=== PATIENT | female | born 1945 | race Caucasian/White ===

== ENCOUNTER 2019-01-28 10:43 | Inpatient (IN) ==
[2019-01-28] MEDS ORDERED: FUROSEMIDE 100 MG/10 ML VIAL IV STA (13:05)
[2019-01-28 13:22] LABS: Basophils % 0.2 % (0.0-0.8); Eosinophils # 0.1 10*3/uL (0.0-0.87); Eosinophils % 1.5 % (0.00-10.9); Hemoglobin 13.6 GM/DL (12.0-16.0); Immature Granulocytes % 0.4 %; Immature Granulocytes Absolute 0.02 #; Lymphocytes # 0.8 10*3/uL (1.4-4.0); Lymphocytes % 16.1 % (21.3-54.2); Mean Corpuscular HGB Conc 30.2 GM/DL (32-36); Mean Corpuscular Volume 90.2 FL (87-102); Mean Platelet Volume 10.2 FL (9.6-12.0); Monocytes % 6.9 % (1.7-12.7); Neutrophils % 74.9 % (38.7-73.9); Platelet Count 235 T/CUMM (130-400); Red Blood Count 4.99 MC/CUMM (3.8-5.5); Red Cell Distribution Width 14.7 % (9.3-17.3); White Blood Count 4.8 T/CUMM (4-12)
[2019-01-28] MEDS ORDERED: ALBUTEROL 2.5 MG/3 ML NEB RESP TX SCH (13:30)
[2019-01-28 13:31] LABS: Albumin 3.2 G/DL (3.4-5.0); Bilirubin,Total 0.7 MG/DL (0.2-1.0); Calcium 8.2 MG/DL (8.5-10.1); Osmolality,Calculated 282.1 MOS/KG (273-304); Total Protein 7.4 G/DL (6.4-8.3)
[2019-01-28 14:31] LABS: Apearance,Urine CLEAR (Clear); Bacteria,Urine Few /HPF (Few); Bilirubin,Urine Negative (Negative); Blood, Urine Negative (Negative); Glucose,Urine (UA) Negative (Negative); Ketones,Urine Negative (Negative); Mucus,Urine Occasional /LPF (Occasional); Nitrite,Urine Negative (Negative); Protein,Urine Negative; RBC,Urine <1 /HPF (0-4); Squamous Epithelial Cell,Urine Occasional /HPF (0-10); Urine Color Straw (Yellow); Urine Specific Gravity 1.004 (1.001-1.035); Urine Urobilinogen < 2.0 EU/DL (0.2-1.0); WBC,Urine 2 /HPF (0-6)
[2019-01-28] MEDS ORDERED: ONDANSETRON 4 MG/2 ML VIAL IV PRN (15:36)
[2019-01-28] MEDS ORDERED: ACETAMINOPHEN 325 MG TABLET PO PRN (15:36)
[2019-01-28] MEDS ORDERED: DEXTROSE 10% 25 GM/250 ML BAG IV PRN (15:36)
[2019-01-28] MEDS ORDERED: GLUCAGON 1 MG VIAL IM PRN (15:36)
[2019-01-28] MEDS ORDERED: LACTULOSE 20 GM/30 ML UDCUP PO PRN (15:36)
[2019-01-28] MEDS ORDERED: ALBUTEROL 2.5 MG/3 ML NEB RESP TX PRN (15:42)
[2019-01-28] MEDS: cefTRIAXone 1,000 MG in SYRINGE 1 EACH IV SCH (17:18)
[2019-01-28] MEDS: METOPROLOL TARTRATE 5 MG/5 ML VIAL IV SCH (17:18)
[2019-01-28] MEDS: ENOXAPARIN 40 MG/0.4 ML SYRINGE SUBCUT SCH (17:19)
[2019-01-28] MEDS: methylPREDNISolone SOD SUC 40 MG/1 ML VIAL IV SCH (17:19)
[2019-01-28] MEDS: carvediloL 12.5 MG TABLET PO SCH ×2 (17:19→20:52)
[2019-01-28] MEDS: INSULIN LISPRO 100 UNIT/ML SUBCUT SCH ×2 (17:23→20:52)
[2019-01-28 17:55] LABS: Risk Ratio 3.09; Thyroid Stimulating Hormone 2.67 uIU/ml (0.358-3.74); VLDL CHOLESTEROL 16.4 MG/DL
[2019-01-28] MEDS: ALBUTEROL/IPRATROPIUM 3 ML NEB RESP TX SCH (19:45)
[2019-01-28] MEDS ORDERED: INFLUENZA VIRUS VACCINE 0.5 ML SYRINGE IM ONE (20:03)
[2019-01-28] MEDS: guaiFENesin/DM ER 600-30 MG TABLET PO SCH (20:53)
[2019-01-29] MEDS: ALBUTEROL/IPRATROPIUM 3 ML NEB RESP TX SCH ×4 (00:10→19:26)
[2019-01-29] MEDS: METOPROLOL TARTRATE 5 MG/5 ML VIAL IV SCH ×4 (01:00→18:10)
[2019-01-29] MEDS: methylPREDNISolone SOD SUC 40 MG/1 ML VIAL IV SCH ×3 (01:02→18:19)
[2019-01-29 06:49] LABS: Basophils % 0.2 % (0.0-0.8); Hematocrit 42.7 VOL% (35.7-47.0); Hemoglobin 12.7 GM/DL (12.0-16.0); Immature Granulocytes % 0.5 %; Immature Granulocytes Absolute 0.03 #; Lymphocytes # 0.5 10*3/uL (1.4-4.0); Lymphocytes % 9.2 % (21.3-54.2); Mean Corpuscular HGB Conc 29.7 GM/DL (32-36); Mean Corpuscular Volume 89.7 FL (87-102); Mean Platelet Volume 10.4 FL (9.6-12.0); Monocytes % 2.1 % (1.7-12.7); Platelet Count 224 T/CUMM (130-400); Red Blood Count 4.76 MC/CUMM (3.8-5.5); Red Cell Distribution Width 14.6 % (9.3-17.3); White Blood Count 5.8 T/CUMM (4-12)
[2019-01-29] MEDS: carvediloL 12.5 MG TABLET PO SCH (08:49)
[2019-01-29] MEDS: PANTOPRAZOLE 40 MG TABLET PO SCH (08:49)
[2019-01-29] MEDS: guaiFENesin/DM ER 600-30 MG TABLET PO SCH ×2 (08:49→20:53)
[2019-01-29] MEDS: INSULIN LISPRO 100 UNIT/ML SUBCUT SCH ×4 (08:49→20:53)
[2019-01-29] MEDS: ASPIRIN EC 81 MG TABLET PO SCH (10:42)
[2019-01-29] MEDS: MELOXICAM 7.5 MG TABLET PO SCH (10:42)
[2019-01-29] MEDS: glipiZIDE 10 MG TABLET PO SCH (10:42)
[2019-01-29] MEDS: FUROSEMIDE 40 MG TABLET PO SCH (17:20)
[2019-01-29] MEDS: ENOXAPARIN 40 MG/0.4 ML SYRINGE SUBCUT SCH (17:21)
[2019-01-29] MEDS: cefTRIAXone 1,000 MG in SYRINGE 1 EACH IV SCH (18:16)
[2019-01-29] MEDS: NYSTATIN CREAM 15 GM TUBE TOP SCH (20:53)
[2019-01-29] MEDS ORDERED: carvediloL 6.25 MG TABLET PO SCH (21:00)
[2019-01-30] MEDS: METOPROLOL TARTRATE 5 MG/5 ML VIAL IV SCH ×4 (01:10→17:08)
[2019-01-30] MEDS: ALBUTEROL/IPRATROPIUM 3 ML NEB RESP TX SCH ×4 (01:17→19:08)
[2019-01-30] MEDS: methylPREDNISolone SOD SUC 40 MG/1 ML VIAL IV SCH ×3 (03:50→22:36)
[2019-01-30 05:48] LABS: Hemoglobin 13.3 GM/DL (12.0-16.0); Immature Granulocytes % 0.6 %; Immature Granulocytes Absolute 0.05 #; Lymphocytes # 0.8 10*3/uL (1.4-4.0); Mean Corpuscular HGB Conc 30.2 GM/DL (32-36); Mean Corpuscular Volume 88.4 FL (87-102); Monocytes % 2.3 % (1.7-12.7); Neutrophils % 88.1 % (38.7-73.9); Platelet Count 293 T/CUMM (130-400); Red Blood Count 4.98 MC/CUMM (3.8-5.5); Red Cell Distribution Width 14.6 % (9.3-17.3); White Blood Count 8.3 T/CUMM (4-12)
[2019-01-30 05:56] LABS: Osmolality,Calculated 288.7 MOS/KG (273-304)
[2019-01-30] MEDS: MELOXICAM 7.5 MG TABLET PO SCH (08:59)
[2019-01-30] MEDS: guaiFENesin/DM ER 600-30 MG TABLET PO SCH ×2 (08:59→20:19)
[2019-01-30] MEDS: ASPIRIN EC 81 MG TABLET PO SCH (08:59)
[2019-01-30] MEDS: INSULIN LISPRO 100 UNIT/ML SUBCUT SCH ×4 (08:59→20:19)
[2019-01-30] MEDS: FUROSEMIDE 40 MG TABLET PO SCH ×2 (09:00→17:03)
[2019-01-30] MEDS: glipiZIDE 10 MG TABLET PO SCH (09:00)
[2019-01-30] MEDS: PANTOPRAZOLE 40 MG TABLET PO SCH (09:00)
[2019-01-30] MEDS: NYSTATIN CREAM 15 GM TUBE TOP SCH ×2 (09:03→20:19)
[2019-01-30] MEDS: ENOXAPARIN 40 MG/0.4 ML SYRINGE SUBCUT SCH (17:03)
[2019-01-31] MEDS: ALBUTEROL/IPRATROPIUM 3 ML NEB RESP TX SCH ×2 (01:35→07:16)
[2019-01-31] MEDS: METOPROLOL TARTRATE 5 MG/5 ML VIAL IV SCH ×2 (01:54→06:54)
[2019-01-31 06:10] LABS: Hematocrit 41.5 VOL% (35.7-47.0); Hemoglobin 12.6 GM/DL (12.0-16.0); Immature Granulocytes % 0.6 %; Immature Granulocytes Absolute 0.05 #; Lymphocytes # 0.5 10*3/uL (1.4-4.0); Mean Corpuscular HGB Conc 30.4 GM/DL (32-36); Mean Corpuscular Volume 88.7 FL (87-102); Monocytes % 2.2 % (1.7-12.7); Neutrophils % 91.2 % (38.7-73.9); Platelet Count 252 T/CUMM (130-400); Red Blood Count 4.68 MC/CUMM (3.8-5.5); Red Cell Distribution Width 14.5 % (9.3-17.3); White Blood Count 8.4 T/CUMM (4-12)
[2019-01-31 06:24] LABS: Calcium 8.2 MG/DL (8.5-10.1)
[2019-01-31 06:35] LABS: Lymphocytes 3 % (20-55); Segmented Neutrophils 94 % (50-85); Total Cells Counted 100
[2019-01-31 06:36] LABS: Anisocytosis Slight; Hypochromasia Slight; Microcytosis 1+; Platelet Estimate Normal; Stomatocytes Few
[2019-01-31 06:37] LABS: Target Cells Slight
[2019-01-31] MEDS: ASPIRIN EC 81 MG TABLET PO SCH (09:30)
[2019-01-31] MEDS: glipiZIDE 10 MG TABLET PO SCH (09:30)
[2019-01-31] MEDS: MELOXICAM 7.5 MG TABLET PO SCH (09:30)
[2019-01-31] MEDS: FUROSEMIDE 40 MG TABLET PO SCH (09:30)
[2019-01-31] MEDS: PANTOPRAZOLE 40 MG TABLET PO SCH (09:30)
[2019-01-31] MEDS: cefTRIAXone 1,000 MG in SYRINGE 1 EACH IV SCH (09:48)
[2019-01-31] MEDS: INSULIN LISPRO 100 UNIT/ML SUBCUT SCH (10:58)
[2019-01-31] MEDS: NYSTATIN CREAM 15 GM TUBE TOP SCH (10:58)
[2019-01-31] MEDS: guaiFENesin/DM ER 600-30 MG TABLET PO SCH (10:59)
[2019-01-31] MEDS: methylPREDNISolone SOD SUC 40 MG/1 ML VIAL IV SCH (11:55)
[2019-01-31 12:55] VITALS: BP 123/55
== END 2019-01-31 13:55 | disposition home health service (06) | DRG 190 ==
LOC: N.ED 10:43 → N.EDINP 15:37 → SUATTDRO 15:37 → N.4E 16:45
PROVIDERS: ADMIT Internal Medicine; ATTEND Internal Medicine

== ENCOUNTER 2019-09-16 12:31 | Inpatient (IN) ==
[2019-09-16] MEDS ORDERED: ETOMIDATE 20 MG/10 ML VIAL IV ONE (13:35)
[2019-09-16] MEDS ORDERED: ROCURONIUM 100 MG/10 ML VIAL IV ONE (13:37)
[2019-09-16] MEDS ORDERED: PIPERACILLIN/TAZOBACTAM 3,375 MG in SODIUM CHLORIDE 0.9% 100 ML IV STA (13:40)
[2019-09-16] MEDS ORDERED: SODIUM CHLORIDE 0.9% 1,000 ML IV STA (13:40)
[2019-09-16] MEDS ORDERED: methylPREDNISolone SOD SUC 125 MG/2 ML VIAL IV STA (13:40)
[2019-09-16 13:45] LABS: ABG Base Excess 1.3 MMOL/L (-2.5-2.5); ABG HCO3 25.6 MMOL/L (20-26); ABG Oxygen Saturation 99.9 % (95-100); ABG PCO2 50.9 MM HG (35-48); ABG PH 7.349 (7.35-7.45); ABG TCO2 24.1 MMOL/L (23-27)
[2019-09-16 14:12] LABS: Basophils % 0.3 % (0.0-0.8); Hematocrit 46.2 VOL% (35.7-47.0); Hemoglobin 14.6 GM/DL (12.0-16.0); Immature Granulocytes % 0.4 %; Immature Granulocytes Absolute 0.03 #; Lymphocytes # 0.3 10*3/uL (1.4-4.0); Lymphocytes % 3.9 % (21.3-54.2); Mean Corpuscular HGB Conc 31.6 GM/DL (32-36); Mean Corpuscular Volume 90.4 FL (87-102); Mean Platelet Volume 9.9 FL (9.6-12.0); Neutrophils % 94.4 % (38.7-73.9); Platelet Count 333 T/CUMM (130-400); Red Blood Count 5.11 MC/CUMM (3.8-5.5); Red Cell Distribution Width 13.8 % (9.3-17.3); White Blood Count 7.8 T/CUMM (4-12)
[2019-09-16 14:24] LABS: INR 1.1; PT Patient Result 11.3 SECS (9.8-11.9); Partial Thromboplastin Time 22.5 SECS (23.9-33.8)
[2019-09-16 14:35] LABS: Alanine Aminotransferase < 9 U/L (13-56); Albumin 2.9 G/DL (3.4-5.0); Alkaline Phosphatase 75 U/L (45-117); Aspartate Amino Transferase 43 U/L (0-37); Blood Urea Nitrogen 24 MG/DL (7-18); Calcium 8.6 MG/DL (8.5-10.1); Estimated Glom Filtration Rate 69 ML/MIN; Glucose 227 MG/DL (74-106); Osmolality,Calculated 283.8 MOS/KG (273-304); Total Protein 7.5 G/DL (6.4-8.3)
[2019-09-16 14:51] LABS: Band Neutrophils 4 % (0-10); Lymphocytes 4 % (20-55); Platelet Estimate Normal; Segmented Neutrophils 92 % (50-85); Total Cells Counted 100
[2019-09-16] MEDS ORDERED: MIDAZOLAM 2 MG/2 ML VIAL IV STA (16:04)
[2019-09-16 16:05] LABS: Apearance,Urine CLOUDY (Clear); Bacteria,Urine Moderate /HPF (Few); Bilirubin,Urine Negative (Negative); Blood, Urine Small mg/dL (Negative); Glucose,Urine (UA) 50 mg/dL (Negative); Ketones,Urine 20 mg/dL (Negative); Mucus,Urine Occasional /LPF (Occasional); Nitrite,Urine Negative (Negative); Protein,Urine 30 MG/DL; RBC,Urine 4 /HPF (0-4); Squamous Epithelial Cell,Urine Occasional /HPF (0-10); Urine Color Yellow (Yellow); Urine Specific Gravity 1.014 (1.001-1.035); Urine Urobilinogen < 2.0 EU/DL (0.2-1.0); WBC,Urine 214 /HPF (0-6)
[2019-09-16] MEDS ORDERED: MIDAZOLAM 2 MG/2 ML VIAL ONE (16:05)
[2019-09-16] MEDS ORDERED: MIDAZOLAM 10 MG/2 ML VIAL ONE ×2 (16:22→17:00)
[2019-09-16] MEDS ORDERED: MIDAZOLAM 100 MG in SODIUM CHLORIDE 0.9% 80 ML IV SCH (16:30)
[2019-09-16] MEDS ORDERED: ONDANSETRON 4 MG/2 ML VIAL IV PRN (17:20)
[2019-09-16] MEDS ORDERED: GLUCAGON 1 MG VIAL IM PRN (17:20)
[2019-09-16] MEDS ORDERED: DEXTROSE 50% 25 GM/50 ML VIAL IV PRN (17:20)
[2019-09-16] MEDS: MIDAZOLAM 100 MG in SODIUM CHLORIDE 0.9% 80 ML IV PRN (17:34)
[2019-09-16] MEDS ORDERED: SODIUM CHLORIDE 0.9% 500 ML IV STA (17:42)
[2019-09-16] MEDS: INSULIN LISPRO 100 UNIT/ML SUBCUT SCH (18:40)
[2019-09-16] MEDS: SODIUM CHLORIDE 0.9% 1,000 ML IV SCH (20:58)
[2019-09-16] MEDS: PIPERACILLIN/TAZOBACTAM 3,375 MG in SODIUM CHLORIDE 0.9% 100 ML IV SCH (21:30)
[2019-09-16] MEDS: ENOXAPARIN 40 MG/0.4 ML SYRINGE SUBCUT SCH (23:20)
[2019-09-16] MEDS: INSULIN GLARGINE 100 UNIT/ML SUBCUT SCH (23:20)
[2019-09-16] MEDS: FAMOTIDINE INJ 40 MG in SODIUM CHLORIDE 0.9% 100 ML IV SCH (23:20)
[2019-09-17] MEDS: INSULIN LISPRO 100 UNIT/ML SUBCUT SCH ×4 (01:20→17:47)
[2019-09-17] MEDS: MORPHINE 4 MG/1 ML VIAL IV PRN (01:21)
[2019-09-17 04:42] LABS: Basophils % 0.1 % (0.0-0.8); Hematocrit 37.5 VOL% (35.7-47.0); Immature Granulocytes % 0.7 %; Immature Granulocytes Absolute 0.13 #; Lymphocytes # 0.7 10*3/uL (1.4-4.0); Lymphocytes % 3.6 % (21.3-54.2); Mean Corpuscular Volume 89.9 FL (87-102); Mean Platelet Volume 9.9 FL (9.6-12.0); Monocytes % 2.1 % (1.7-12.7); Neutrophils % 93.5 % (38.7-73.9); Platelet Count 243 T/CUMM (130-400); Red Blood Count 4.17 MC/CUMM (3.8-5.5); Red Cell Distribution Width 14.1 % (9.3-17.3)
[2019-09-17 05:16] LABS: Albumin 2.3 G/DL (3.4-5.0); Bilirubin,Total 1.2 MG/DL (0.2-1.0); Calcium 8.1 MG/DL (8.5-10.1); Osmolality,Calculated 291.4 MOS/KG (273-304); Thyroid Stimulating Hormone 0.47 uIU/ml (0.358-3.74); Total Protein 6.5 G/DL (6.4-8.3)
[2019-09-17] MEDS: SODIUM CHLORIDE 0.9% 1,000 ML IV SCH ×3 (06:30→17:24)
[2019-09-17] MEDS: PIPERACILLIN/TAZOBACTAM 3,375 MG in SODIUM CHLORIDE 0.9% 100 ML IV SCH ×3 (06:30→17:23)
[2019-09-17 07:03] LABS: Band Neutrophils 2 % (0-10); Hypochromasia 1+; Lymphocytes 1 % (20-55); Polychromasia Slight; Segmented Neutrophils 96 % (50-85); Total Cells Counted 100
[2019-09-17 07:04] LABS: Anisocytosis 1+; Microcytosis Slight; Platelet Estimate Normal
[2019-09-17 09:52] LABS: ABG Base Excess 3.4 MMOL/L (-2.5-2.5); ABG HCO3 27.4 MMOL/L (20-26); ABG Oxygen Saturation 99.5 % (95-100); ABG PCO2 36.1 MM HG (35-48); ABG PH 7.478 (7.35-7.45); ABG TCO2 23.6 MMOL/L (23-27); Pt O2 Delivery Device Ventilator
[2019-09-17] MEDS: MIDAZOLAM 100 MG in SODIUM CHLORIDE 0.9% 80 ML IV PRN (12:01)
[2019-09-17] MEDS: ENOXAPARIN 40 MG/0.4 ML SYRINGE SUBCUT SCH (21:19)
[2019-09-17] MEDS: INSULIN GLARGINE 100 UNIT/ML SUBCUT SCH (21:19)
[2019-09-17] MEDS: FAMOTIDINE INJ 40 MG in SODIUM CHLORIDE 0.9% 100 ML IV SCH (23:03)
[2019-09-18] MEDS: INSULIN LISPRO 100 UNIT/ML SUBCUT SCH ×5 (00:07→23:38)
[2019-09-18] MEDS: SODIUM CHLORIDE 0.9% 1,000 ML IV SCH (01:05)
[2019-09-18] MEDS: PIPERACILLIN/TAZOBACTAM 3,375 MG in SODIUM CHLORIDE 0.9% 100 ML IV SCH ×2 (03:15→09:25)
[2019-09-18 05:20] LABS: ABG Base Excess 2.4 MMOL/L (-2.5-2.5); ABG HCO3 26.6 MMOL/L (20-26); ABG Oxygen Saturation 99.5 % (95-100); ABG PCO2 34.9 MM HG (35-48); ABG PH 7.476 (7.35-7.45); ABG TCO2 22.9 MMOL/L (23-27)
[2019-09-18 05:21] LABS: Allen Test Positive; Pt O2 Delivery Device Ventilator
[2019-09-18 05:46] LABS: Basophils % 0.1 % (0.0-0.8); Eosinophils % 0.2 % (0.00-10.9); Hematocrit 34.3 VOL% (35.7-47.0); Hemoglobin 10.9 GM/DL (12.0-16.0); Immature Granulocytes % 0.9 %; Immature Granulocytes Absolute 0.15 #; Lymphocytes # 1.2 10*3/uL (1.4-4.0); Lymphocytes % 7.3 % (21.3-54.2); Mean Corpuscular HGB Conc 31.8 GM/DL (32-36); Mean Corpuscular Volume 90.3 FL (87-102); Mean Platelet Volume 10.5 FL (9.6-12.0); Monocytes % 4.4 % (1.7-12.7); Neutrophils % 87.1 % (38.7-73.9); Platelet Count 226 T/CUMM (130-400); Red Cell Distribution Width 14.3 % (9.3-17.3); White Blood Count 15.8 T/CUMM (4-12)
[2019-09-18 06:30] LABS: Calcium 7.6 MG/DL (8.5-10.1); Osmolality,Calculated 291.8 MOS/KG (273-304)
[2019-09-18] MEDS ORDERED: DEXTROSE 50% 25 GM/50 ML VIAL IV PRN (07:14)
[2019-09-18] MEDS ORDERED: MAGNESIUM SULF RIDER 2 GM in PREMIX 1 EACH IV ONE (07:16)
[2019-09-18] MEDS: methylPREDNISolone SOD SUC 40 MG/1 ML VIAL IV SCH ×2 (08:11→20:41)
[2019-09-18] MEDS: POTASSIUM CHLORIDE 20 MEQ/15 ML UDCUP PER TUBE SCH ×5 (08:11→23:26)
[2019-09-18] MEDS: CARBIDOPA/LEVODOPA 10-100 MG TABLET PO SCH ×3 (08:12→20:41)
[2019-09-18] MEDS: amLODIPine 5 MG TABLET PER TUBE SCH (08:12)
[2019-09-18] MEDS: MIDAZOLAM 100 MG in SODIUM CHLORIDE 0.9% 80 ML IV PRN (08:22)
[2019-09-18] MEDS: LACTATED RINGERS 1,000 ML IV SCH ×2 (08:25→23:24)
[2019-09-18 11:06] LABS: Pt O2 Delivery Device Ventilator
[2019-09-18 11:11] LABS: ABG Base Excess 1.2 MMOL/L (-2.5-2.5); ABG HCO3 26.7 MMOL/L (20-26); ABG Oxygen Saturation 98.1 % (95-100); ABG PH 7.381 (7.35-7.45); ABG PO2 123.9 MM HG (80-95); ABG TCO2 28.1 MMOL/L (23-27)
[2019-09-18] MEDS: NYSTATIN POWDER 15 GM BOTTLE TOP SCH ×2 (12:35→15:07)
[2019-09-18] MEDS: MEROPENEM 500 MG in SODIUM CHLORIDE 0.9% 100 ML IV SCH ×2 (14:58→20:40)
[2019-09-18] MEDS: GENTAMICIN INJ 400 MG in SODIUM CHLORIDE 0.9% 100 ML IV SCH (15:51)
[2019-09-18] MEDS: ENOXAPARIN 40 MG/0.4 ML SYRINGE SUBCUT SCH (20:41)
[2019-09-18] MEDS: INSULIN GLARGINE 100 UNIT/ML SUBCUT SCH (20:41)
[2019-09-18] MEDS: FAMOTIDINE INJ 40 MG in SODIUM CHLORIDE 0.9% 100 ML IV SCH (23:26)
[2019-09-19] MEDS: NYSTATIN POWDER 15 GM BOTTLE TOP SCH ×4 (00:48→21:16)
[2019-09-19] MEDS: LACTATED RINGERS 1,000 ML IV SCH ×2 (01:16→13:18)
[2019-09-19] MEDS: MEROPENEM 500 MG in SODIUM CHLORIDE 0.9% 100 ML IV SCH ×4 (03:22→21:15)
[2019-09-19 04:18] LABS: Basophils % 0.1 % (0.0-0.8); Hematocrit 34.4 VOL% (35.7-47.0); Hemoglobin 10.7 GM/DL (12.0-16.0); Immature Granulocytes % 0.7 %; Lymphocytes % 7.2 % (21.3-54.2); Mean Corpuscular HGB Conc 31.1 GM/DL (32-36); Mean Corpuscular Volume 91.5 FL (87-102); Mean Platelet Volume 10.6 FL (9.6-12.0); Monocytes % 5.5 % (1.7-12.7); Neutrophils % 86.5 % (38.7-73.9); Platelet Count 224 T/CUMM (130-400); Red Blood Count 3.76 MC/CUMM (3.8-5.5); Red Cell Distribution Width 14.4 % (9.3-17.3); White Blood Count 13.4 T/CUMM (4-12)
[2019-09-19 04:32] LABS: Allen Test Positive; Pt O2 Delivery Device Ventilator
[2019-09-19 04:38] LABS: ABG Base Excess 2.9 MMOL/L (-2.5-2.5); ABG HCO3 27.5 MMOL/L (20-26); ABG Oxygen Saturation 98.9 % (95-100); ABG PCO2 42.1 MM HG (35-48); ABG PH 7.433 (7.35-7.45); ABG PO2 169.1 MM HG (80-95); ABG TCO2 28.8 MMOL/L (23-27)
[2019-09-19 04:53] LABS: Osmolality,Calculated 293.8 MOS/KG (273-304)
[2019-09-19] MEDS: INSULIN LISPRO 100 UNIT/ML SUBCUT SCH ×3 (06:06→17:20)
[2019-09-19] MEDS: methylPREDNISolone SOD SUC 40 MG/1 ML VIAL IV SCH ×2 (09:35→21:16)
[2019-09-19] MEDS: amLODIPine 5 MG TABLET PER TUBE SCH (11:24)
[2019-09-19] MEDS: CARBIDOPA/LEVODOPA 10-100 MG TABLET PO SCH ×3 (11:24→21:16)
[2019-09-19] MEDS: MULTIVITAMIN LIQUID (CENTRUM) 60 ML BOTTLE PO SCH (11:26)
[2019-09-19] MEDS: GENTAMICIN INJ 400 MG in SODIUM CHLORIDE 0.9% 100 ML IV SCH (16:30)
[2019-09-19] MEDS: INSULIN GLARGINE 100 UNIT/ML SUBCUT SCH (21:15)
[2019-09-19] MEDS: ENOXAPARIN 40 MG/0.4 ML SYRINGE SUBCUT SCH (21:16)
[2019-09-19] MEDS: FAMOTIDINE INJ 40 MG in SODIUM CHLORIDE 0.9% 100 ML IV SCH (21:30)
[2019-09-19 22:36] LABS: ABG Base Excess -3.3 MMOL/L (-2.5-2.5); ABG HCO3 21.6 MMOL/L (20-26); ABG PO2 75.1 MM HG (80-95); ABG TCO2 32.5 MMOL/L (23-27); Allen Test Positive
[2019-09-19 22:48] LABS: ABG PH 7.027 (7.35-7.45)
[2019-09-19 23:28] LABS: Allen Test Positive; Pt O2 Delivery Device BIPAP
[2019-09-19 23:30] LABS: ABG Base Excess -1.3 MMOL/L (-2.5-2.5); ABG HCO3 23.3 MMOL/L (20-26); ABG Oxygen Saturation 98.9 % (95-100)
[2019-09-19] MEDS ORDERED: ETOMIDATE 20 MG/10 ML VIAL IV ONE (23:36)
[2019-09-20] MEDS: INSULIN LISPRO 100 UNIT/ML SUBCUT SCH ×5 (00:47→23:37)
[2019-09-20 01:29] LABS: Allen Test Positive; Pt O2 Delivery Device BIPAP
[2019-09-20 01:30] LABS: ABG HCO3 26.9 MMOL/L (20-26); ABG Oxygen Saturation 88.7 % (95-100); ABG PH 7.268 (7.35-7.45); ABG PO2 52.2 MM HG (80-95); ABG TCO2 29.3 MMOL/L (23-27)
[2019-09-20 01:32] LABS: ABG PCO2 71.7 MM HG (35-48)
[2019-09-20] MEDS: MORPHINE 4 MG/1 ML VIAL IV PRN (02:59)
[2019-09-20] MEDS: MEROPENEM 500 MG in SODIUM CHLORIDE 0.9% 100 ML IV SCH ×4 (03:06→20:50)
[2019-09-20] MEDS: LACTATED RINGERS 1,000 ML IV SCH (03:07)
[2019-09-20 04:00] LABS: ABG Base Excess 4.6 MMOL/L (-2.5-2.5); ABG HCO3 28.4 MMOL/L (20-26); ABG Oxygen Saturation 92.3 % (95-100); ABG PH 7.279 (7.35-7.45); ABG PO2 61.9 MM HG (80-95); ABG TCO2 30.6 MMOL/L (23-27)
[2019-09-20 05:19] LABS: Calcium 8.8 MG/DL (8.5-10.1)
[2019-09-20 05:33] LABS: Prealbumin 11.5 MG/DL (20-40)
[2019-09-20 07:00] LABS: Basophils # 0.1 10*3/uL (0.0-0.2); Basophils % 0.6 % (0.0-0.8); Hematocrit 42.3 VOL% (35.7-47.0); Immature Granulocytes % 5.1 %; Immature Granulocytes Absolute 0.65 #; Lymphocytes # 0.8 10*3/uL (1.4-4.0); Mean Corpuscular HGB Conc 29.6 GM/DL (32-36); Mean Corpuscular Volume 96.1 FL (87-102); Mean Platelet Volume 10.4 FL (9.6-12.0); Neutrophils % 83.3 % (38.7-73.9); Platelet Count 232 T/CUMM (130-400); Red Cell Distribution Width 14.5 % (9.3-17.3); White Blood Count 12.8 T/CUMM (4-12)
[2019-09-20 07:03] LABS: Hemoglobin 12.5 GM/DL (12.0-16.0)
[2019-09-20 07:32] LABS: Hypochromasia 1+; Lymphocytes 6 % (20-55); Microcytosis 1+; Platelet Estimate Adequate; Segmented Neutrophils 88 % (50-85); Total Cells Counted 100
[2019-09-20] MEDS: SODIUM CHLORIDE 0.9% 1,000 ML IV SCH ×3 (09:00→23:35)
[2019-09-20] MEDS: MULTIVITAMIN LIQUID (CENTRUM) 60 ML BOTTLE PO SCH (09:00)
[2019-09-20] MEDS: NYSTATIN POWDER 15 GM BOTTLE TOP SCH ×3 (09:03→21:41)
[2019-09-20] MEDS: CARBIDOPA/LEVODOPA 10-100 MG TABLET PO SCH ×3 (09:05→21:41)
[2019-09-20 09:11] LABS: ABG Base Excess 3.9 MMOL/L (-2.5-2.5); ABG HCO3 27.8 MMOL/L (20-26); ABG Oxygen Saturation 94.6 % (95-100); ABG PH 7.239 (7.35-7.45); ABG PO2 75.1 MM HG (80-95); ABG TCO2 31.3 MMOL/L (23-27); Allen Test Positive; Pt O2 Delivery Device BIPAP
[2019-09-20 09:16] LABS: ABG PCO2 81.6 MM HG (35-48)
[2019-09-20] MEDS: amLODIPine 5 MG TABLET PER TUBE SCH (09:23)
[2019-09-20] MEDS: methylPREDNISolone SOD SUC 40 MG/1 ML VIAL IV SCH ×2 (09:24→21:41)
[2019-09-20] MEDS ORDERED: MIDAZOLAM 10 MG/2 ML VIAL ONE (09:48)
[2019-09-20] MEDS ORDERED: ETOMIDATE 20 MG/10 ML VIAL IV ONE ×2 (09:49→10:04)
[2019-09-20] MEDS ORDERED: VECURONIUM 10 MG VIAL IV ONE ×2 (09:53→10:04)
[2019-09-20 11:43] LABS: ABG Base Excess 7.1 MMOL/L (-2.5-2.5); ABG HCO3 30.9 MMOL/L (20-26); ABG PCO2 52.7 MM HG (35-48); ABG PH 7.408 (7.35-7.45); ABG TCO2 29.5 MMOL/L (23-27); Allen Test Positive; Pt O2 Delivery Device Ventilator
[2019-09-20] MEDS: ALBUTEROL/IPRATROPIUM 3 ML NEB RESP TX SCH (19:48)
[2019-09-20] MEDS: INSULIN GLARGINE 100 UNIT/ML SUBCUT SCH (21:41)
[2019-09-20] MEDS: ENOXAPARIN 40 MG/0.4 ML SYRINGE SUBCUT SCH (21:41)
[2019-09-20] MEDS: FAMOTIDINE INJ 40 MG in SODIUM CHLORIDE 0.9% 100 ML IV SCH (23:00)
[2019-09-21] MEDS: ALBUTEROL/IPRATROPIUM 3 ML NEB RESP TX SCH ×4 (01:06→19:20)
[2019-09-21] MEDS: MEROPENEM 500 MG in SODIUM CHLORIDE 0.9% 100 ML IV SCH ×4 (02:40→21:08)
[2019-09-21 03:48] LABS: Basophils % 0.1 % (0.0-0.8); Hematocrit 36.2 VOL% (35.7-47.0); Hemoglobin 11.2 GM/DL (12.0-16.0); Immature Granulocytes % 1.1 %; Immature Granulocytes Absolute 0.08 #; Lymphocytes # 0.7 10*3/uL (1.4-4.0); Lymphocytes % 8.8 % (21.3-54.2); Mean Corpuscular HGB Conc 30.9 GM/DL (32-36); Mean Corpuscular Volume 90.7 FL (87-102); Mean Platelet Volume 10.7 FL (9.6-12.0); Platelet Count 173 T/CUMM (130-400); Red Blood Count 3.99 MC/CUMM (3.8-5.5); Red Cell Distribution Width 13.7 % (9.3-17.3); White Blood Count 7.6 T/CUMM (4-12)
[2019-09-21 04:31] LABS: Calcium 8.4 MG/DL (8.5-10.1); Osmolality,Calculated 291.3 MOS/KG (273-304)
[2019-09-21] MEDS: INSULIN LISPRO 100 UNIT/ML SUBCUT SCH ×3 (05:59→17:26)
[2019-09-21] MEDS: SODIUM CHLORIDE 0.9% 1,000 ML IV SCH (06:00)
[2019-09-21 06:32] LABS: ABG Base Excess 8.1 MMOL/L (-2.5-2.5); ABG HCO3 31.9 MMOL/L (20-26); ABG Oxygen Saturation 99.8 % (95-100); ABG PCO2 33.3 MM HG (35-48); ABG PH 7.568 (7.35-7.45); ABG TCO2 26.9 MMOL/L (23-27)
[2019-09-21] MEDS: NYSTATIN POWDER 15 GM BOTTLE TOP SCH ×3 (08:26→22:37)
[2019-09-21] MEDS: CARBIDOPA/LEVODOPA 10-100 MG TABLET PO SCH ×3 (08:30→21:05)
[2019-09-21] MEDS: amLODIPine 5 MG TABLET PER TUBE SCH (08:30)
[2019-09-21] MEDS: methylPREDNISolone SOD SUC 40 MG/1 ML VIAL IV SCH ×2 (08:31→21:06)
[2019-09-21] MEDS: MULTIVITAMIN LIQUID (CENTRUM) 60 ML BOTTLE PO SCH (09:05)
[2019-09-21] MEDS: ENOXAPARIN 40 MG/0.4 ML SYRINGE SUBCUT SCH (21:06)
[2019-09-21] MEDS: DESITIN 4OZ/NYSTATIN 15 GRAM MIXTURE PASTE TOP SCH (21:07)
[2019-09-21] MEDS: INSULIN GLARGINE 100 UNIT/ML SUBCUT SCH (21:09)
[2019-09-21] MEDS: FAMOTIDINE INJ 40 MG in SODIUM CHLORIDE 0.9% 100 ML IV SCH (22:45)
[2019-09-22] MEDS: INSULIN LISPRO 100 UNIT/ML SUBCUT SCH ×4 (00:44→17:35)
[2019-09-22] MEDS: ALBUTEROL/IPRATROPIUM 3 ML NEB RESP TX SCH ×4 (02:35→19:52)
[2019-09-22] MEDS: MEROPENEM 500 MG in SODIUM CHLORIDE 0.9% 100 ML IV SCH ×4 (03:00→21:03)
[2019-09-22 03:52] LABS: Basophils % 0.1 % (0.0-0.8); Hematocrit 35.3 VOL% (35.7-47.0); Hemoglobin 11.5 GM/DL (12.0-16.0); Immature Granulocytes % 2.1 %; Immature Granulocytes Absolute 0.17 #; Lymphocytes # 0.7 10*3/uL (1.4-4.0); Lymphocytes % 8.9 % (21.3-54.2); Mean Corpuscular HGB Conc 32.6 GM/DL (32-36); Mean Corpuscular Volume 87.8 FL (87-102); Mean Platelet Volume 10.7 FL (9.6-12.0); Neutrophils % 80.9 % (38.7-73.9); Platelet Count 184 T/CUMM (130-400); Red Blood Count 4.02 MC/CUMM (3.8-5.5); Red Cell Distribution Width 13.9 % (9.3-17.3); White Blood Count 8.2 T/CUMM (4-12)
[2019-09-22 05:02] LABS: Allen Test Positive; Pt O2 Delivery Device Ventilator
[2019-09-22 05:03] LABS: ABG Base Excess 7.1 MMOL/L (-2.5-2.5); ABG HCO3 30.9 MMOL/L (20-26); ABG Oxygen Saturation 99.7 % (95-100); ABG PCO2 29.2 MM HG (35-48)
[2019-09-22 05:11] LABS: ABG PH 7.596 (7.35-7.45)
[2019-09-22 05:20] LABS: Albumin 2.2 G/DL (3.4-5.0); Bilirubin,Total 0.6 MG/DL (0.2-1.0); Calcium 8.2 MG/DL (8.5-10.1); Osmolality,Calculated 291.3 MOS/KG (273-304); Total Protein 5.6 G/DL (6.4-8.3)
[2019-09-22] MEDS: methylPREDNISolone SOD SUC 40 MG/1 ML VIAL IV SCH ×2 (08:00→21:04)
[2019-09-22] MEDS: MULTIVITAMIN LIQUID (CENTRUM) 60 ML BOTTLE PO SCH (08:00)
[2019-09-22] MEDS: amLODIPine 5 MG TABLET PER TUBE SCH (08:00)
[2019-09-22] MEDS: CARBIDOPA/LEVODOPA 10-100 MG TABLET PO SCH ×3 (08:00→21:04)
[2019-09-22] MEDS: MORPHINE 4 MG/1 ML VIAL IV PRN (08:15)
[2019-09-22] MEDS: DESITIN 4OZ/NYSTATIN 15 GRAM MIXTURE PASTE TOP SCH ×2 (08:30→21:04)
[2019-09-22] MEDS: NYSTATIN POWDER 15 GM BOTTLE TOP SCH ×3 (08:30→21:04)
[2019-09-22] MEDS ORDERED: FUROSEMIDE 40 MG/4 ML VIAL IV ONE (08:46)
[2019-09-22] MEDS ORDERED: MAGNESIUM SULF RIDER 2 GM in PREMIX 1 EACH IV PRN (16:24)
[2019-09-22] MEDS ORDERED: MAGNESIUM SULF RIDER 4 GM in PREMIX 1 EACH IV PRN (16:24)
[2019-09-22] MEDS: POTASSIUM CHLORIDE RIDER 20 MEQ in PREMIX 1 EACH IV PRN (16:52)
[2019-09-22] MEDS: POTASSIUM CHLORIDE RIDER 10 MEQ in PREMIX 1 EACH IV PRN (17:55)
[2019-09-22] MEDS: INSULIN GLARGINE 100 UNIT/ML SUBCUT SCH (21:04)
[2019-09-22] MEDS: ENOXAPARIN 40 MG/0.4 ML SYRINGE SUBCUT SCH (21:04)
[2019-09-22] MEDS: FAMOTIDINE INJ 40 MG in SODIUM CHLORIDE 0.9% 100 ML IV SCH (22:38)
[2019-09-23] MEDS: INSULIN LISPRO 100 UNIT/ML SUBCUT SCH ×4 (00:07→17:15)
[2019-09-23] MEDS: ALBUTEROL/IPRATROPIUM 3 ML NEB RESP TX SCH ×4 (01:55→19:36)
[2019-09-23] MEDS: MEROPENEM 500 MG in SODIUM CHLORIDE 0.9% 100 ML IV SCH ×4 (03:47→19:35)
[2019-09-23 03:55] LABS: Basophils % 0.3 % (0.0-0.8); Eosinophils # 0.1 10*3/uL (0.0-0.87); Eosinophils % 1.2 % (0.00-10.9); Hematocrit 37.4 VOL% (35.7-47.0); Hemoglobin 11.6 GM/DL (12.0-16.0); Immature Granulocytes % 4.2 %; Immature Granulocytes Absolute 0.43 #; Lymphocytes % 19.1 % (21.3-54.2); Mean Platelet Volume 10.3 FL (9.6-12.0); Monocytes % 9.6 % (1.7-12.7); Neutrophils % 65.6 % (38.7-73.9); Platelet Count 209 T/CUMM (130-400); Red Blood Count 4.11 MC/CUMM (3.8-5.5); Red Cell Distribution Width 14.3 % (9.3-17.3); White Blood Count 10.2 T/CUMM (4-12)
[2019-09-23 04:18] LABS: Calcium 8.1 MG/DL (8.5-10.1); Osmolality,Calculated 287.1 MOS/KG (273-304)
[2019-09-23 04:43] LABS: ABG Base Excess 9.1 MMOL/L (-2.5-2.5); ABG HCO3 32.9 MMOL/L (20-26); ABG PCO2 44.7 MM HG (35-48); ABG PH 7.486 (7.35-7.45); ABG TCO2 29.8 MMOL/L (23-27)
[2019-09-23] MEDS: POTASSIUM CHLORIDE RIDER 20 MEQ in PREMIX 1 EACH IV PRN ×2 (05:38→06:45)
[2019-09-23] MEDS: MULTIVITAMIN LIQUID (CENTRUM) 60 ML BOTTLE PO SCH (09:10)
[2019-09-23] MEDS: methylPREDNISolone SOD SUC 40 MG/1 ML VIAL IV SCH ×2 (09:10→21:23)
[2019-09-23] MEDS: CARBIDOPA/LEVODOPA 10-100 MG TABLET PO SCH ×3 (09:10→21:23)
[2019-09-23] MEDS: amLODIPine 5 MG TABLET PER TUBE SCH (09:10)
[2019-09-23] MEDS: NYSTATIN POWDER 15 GM BOTTLE TOP SCH ×3 (10:30→21:23)
[2019-09-23] MEDS: DESITIN 4OZ/NYSTATIN 15 GRAM MIXTURE PASTE TOP SCH ×2 (10:30→21:23)
[2019-09-23] MEDS ORDERED: POTASSIUM CHLORIDE 20 MEQ/15 ML UDCUP PO ONE (13:16)
[2019-09-23] MEDS: ENOXAPARIN 40 MG/0.4 ML SYRINGE SUBCUT SCH (21:23)
[2019-09-23] MEDS: INSULIN GLARGINE 100 UNIT/ML SUBCUT SCH (21:23)
[2019-09-23] MEDS: FAMOTIDINE INJ 40 MG in SODIUM CHLORIDE 0.9% 100 ML IV SCH (23:10)
[2019-09-24] MEDS: INSULIN LISPRO 100 UNIT/ML SUBCUT SCH ×4 (00:48→17:18)
[2019-09-24] MEDS: ALBUTEROL/IPRATROPIUM 3 ML NEB RESP TX SCH ×4 (01:39→19:07)
[2019-09-24] MEDS: MEROPENEM 500 MG in SODIUM CHLORIDE 0.9% 100 ML IV SCH ×4 (01:57→20:07)
[2019-09-24 04:19] LABS: ABG Base Excess 3.3 MMOL/L (-2.5-2.5); ABG HCO3 27.4 MMOL/L (20-26); ABG Oxygen Saturation 99.1 % (95-100); ABG PH 7.423 (7.35-7.45); Allen Test Positive; Pt O2 Delivery Device Ventilator
[2019-09-24 06:18] LABS: Basophils % 0.4 % (0.0-0.8); Eosinophils # 0.3 10*3/uL (0.0-0.87); Eosinophils % 3.3 % (0.00-10.9); Hematocrit 35.4 VOL% (35.7-47.0); Hemoglobin 10.8 GM/DL (12.0-16.0); Immature Granulocytes % 5.1 %; Immature Granulocytes Absolute 0.43 #; Lymphocytes # 1.2 10*3/uL (1.4-4.0); Lymphocytes % 13.9 % (21.3-54.2); Mean Corpuscular HGB Conc 30.5 GM/DL (32-36); Mean Corpuscular Volume 92.2 FL (87-102); Mean Platelet Volume 11.2 FL (9.6-12.0); Neutrophils % 69.3 % (38.7-73.9); Platelet Count 179 T/CUMM (130-400); Red Blood Count 3.84 MC/CUMM (3.8-5.5); Red Cell Distribution Width 14.6 % (9.3-17.3); White Blood Count 8.5 T/CUMM (4-12)
[2019-09-24 09:09] LABS: Band Neutrophils 2 % (0-10); Eosinophils 1 % (0-10); Hypochromasia 1+; Lymphocytes 10 % (20-55); Segmented Neutrophils 78 % (50-85); Total Cells Counted 100
[2019-09-24 09:10] LABS: Microcytosis 1+; Ovalocytes Slight
[2019-09-24 09:12] LABS: Platelet Estimate Adequate
[2019-09-24] MEDS: methylPREDNISolone SOD SUC 40 MG/1 ML VIAL IV SCH ×2 (09:14→20:07)
[2019-09-24] MEDS: amLODIPine 5 MG TABLET PER TUBE SCH (09:15)
[2019-09-24] MEDS: CARBIDOPA/LEVODOPA 10-100 MG TABLET PO SCH ×3 (09:15→20:06)
[2019-09-24] MEDS: NYSTATIN POWDER 15 GM BOTTLE TOP SCH ×3 (09:28→20:08)
[2019-09-24] MEDS: DESITIN 4OZ/NYSTATIN 15 GRAM MIXTURE PASTE TOP SCH ×2 (09:29→20:08)
[2019-09-24] MEDS: MULTIVITAMIN LIQUID (CENTRUM) 60 ML BOTTLE PO SCH (09:55)
[2019-09-24] MEDS: POTASSIUM CHLORIDE RIDER 20 MEQ in PREMIX 1 EACH IV PRN ×2 (16:23→18:43)
[2019-09-24 18:54] LABS: Osmolality,Calculated 288.5 MOS/KG (273-304)
[2019-09-24] MEDS: INSULIN GLARGINE 100 UNIT/ML SUBCUT SCH (20:06)
[2019-09-24] MEDS: ENOXAPARIN 40 MG/0.4 ML SYRINGE SUBCUT SCH (20:06)
[2019-09-24] MEDS: FAMOTIDINE INJ 40 MG in SODIUM CHLORIDE 0.9% 100 ML IV SCH (22:13)
[2019-09-25] MEDS: ALBUTEROL/IPRATROPIUM 3 ML NEB RESP TX SCH ×4 (00:04→19:37)
[2019-09-25] MEDS: INSULIN LISPRO 100 UNIT/ML SUBCUT SCH ×4 (00:08→18:16)
[2019-09-25] MEDS: MEROPENEM 500 MG in SODIUM CHLORIDE 0.9% 100 ML IV SCH ×4 (02:50→21:30)
[2019-09-25 03:54] LABS: Basophils % 0.1 % (0.0-0.8); Eosinophils % 0.2 % (0.00-10.9); Hematocrit 35.4 VOL% (35.7-47.0); Immature Granulocytes % 4.2 %; Immature Granulocytes Absolute 0.35 #; Lymphocytes # 0.5 10*3/uL (1.4-4.0); Lymphocytes % 6.5 % (21.3-54.2); Mean Corpuscular HGB Conc 31.1 GM/DL (32-36); Mean Corpuscular Volume 90.8 FL (87-102); Mean Platelet Volume 11.2 FL (9.6-12.0); Monocytes % 5.1 % (1.7-12.7); Neutrophils % 83.9 % (38.7-73.9); Platelet Count 196 T/CUMM (130-400); Red Cell Distribution Width 14.5 % (9.3-17.3); White Blood Count 8.4 T/CUMM (4-12)
[2019-09-25 04:16] LABS: Calcium 8.1 MG/DL (8.5-10.1); Osmolality,Calculated 285.5 MOS/KG (273-304)
[2019-09-25 04:24] LABS: ABG Base Excess 0.6 MMOL/L (-2.5-2.5); ABG HCO3 24.9 MMOL/L (20-26); ABG Oxygen Saturation 98.7 % (95-100); ABG PCO2 45.1 MM HG (35-48); ABG PH 7.371 (7.35-7.45); ABG TCO2 23.5 MMOL/L (23-27); Allen Test Positive; Pt O2 Delivery Device Ventilator
[2019-09-25] MEDS ORDERED: FUROSEMIDE 40 MG/4 ML VIAL IV ONE (07:32)
[2019-09-25] MEDS: DEXMEDETOMIDINE 200 MCG in SODIUM CHLORIDE 0.9% 48 ML IV PRN ×4 (08:25→20:45)
[2019-09-25] MEDS: predniSONE 20 MG TABLET PO SCH (08:33)
[2019-09-25] MEDS: amLODIPine 5 MG TABLET PER TUBE SCH (08:35)
[2019-09-25] MEDS: CARBIDOPA/LEVODOPA 10-100 MG TABLET PO SCH ×3 (08:35→21:30)
[2019-09-25] MEDS: NYSTATIN POWDER 15 GM BOTTLE TOP SCH ×3 (08:36→21:30)
[2019-09-25] MEDS: DESITIN 4OZ/NYSTATIN 15 GRAM MIXTURE PASTE TOP SCH ×2 (08:36→21:30)
[2019-09-25] MEDS: MULTIVITAMIN LIQUID (CENTRUM) 60 ML BOTTLE PO SCH (08:42)
[2019-09-25] MEDS ORDERED: DEXMEDETOMIDINE 400 MCG in SODIUM CHLORIDE 0.9% 46 ML IV PRN (21:08)
[2019-09-25] MEDS: INSULIN GLARGINE 100 UNIT/ML SUBCUT SCH (21:30)
[2019-09-25] MEDS: ENOXAPARIN 40 MG/0.4 ML SYRINGE SUBCUT SCH (21:30)
[2019-09-25] MEDS: FAMOTIDINE INJ 40 MG in SODIUM CHLORIDE 0.9% 100 ML IV SCH (22:17)
[2019-09-26] MEDS: ALBUTEROL/IPRATROPIUM 3 ML NEB RESP TX SCH ×4 (00:55→20:00)
[2019-09-26] MEDS: INSULIN LISPRO 100 UNIT/ML SUBCUT SCH ×4 (01:09→17:39)
[2019-09-26] MEDS: MEROPENEM 500 MG in SODIUM CHLORIDE 0.9% 100 ML IV SCH ×4 (03:08→20:13)
[2019-09-26 05:01] LABS: ABG Base Excess 2.4 MMOL/L (-2.5-2.5); ABG HCO3 26.6 MMOL/L (20-26); ABG Oxygen Saturation 98.9 % (95-100); ABG PCO2 46.3 MM HG (35-48); ABG TCO2 24.7 MMOL/L (23-27); Allen Test Positive; Pt O2 Delivery Device Ventilator
[2019-09-26 05:39] LABS: Basophils % 0.2 % (0.0-0.8); Eosinophils # 0.1 10*3/uL (0.0-0.87); Eosinophils % 1.2 % (0.00-10.9); Hematocrit 38.6 VOL% (35.7-47.0); Hemoglobin 12.1 GM/DL (12.0-16.0); Immature Granulocytes % 2.4 %; Immature Granulocytes Absolute 0.22 #; Lymphocytes % 11.6 % (21.3-54.2); Mean Corpuscular HGB Conc 31.3 GM/DL (32-36); Mean Corpuscular Volume 91.3 FL (87-102); Mean Platelet Volume 11.2 FL (9.6-12.0); Monocytes % 8.2 % (1.7-12.7); Neutrophils % 76.4 % (38.7-73.9); Platelet Count 241 T/CUMM (130-400); Red Blood Count 4.23 MC/CUMM (3.8-5.5); Red Cell Distribution Width 14.3 % (9.3-17.3)
[2019-09-26 05:59] LABS: Calcium 8.4 MG/DL (8.5-10.1); Osmolality,Calculated 287.3 MOS/KG (273-304)
[2019-09-26] MEDS: POTASSIUM CHLORIDE RIDER 20 MEQ in PREMIX 1 EACH IV PRN (06:15)
[2019-09-26] MEDS: POTASSIUM CHLORIDE RIDER 10 MEQ in PREMIX 1 EACH IV PRN (07:26)
[2019-09-26] MEDS: CARBIDOPA/LEVODOPA 10-100 MG TABLET PO SCH ×3 (09:48→20:12)
[2019-09-26] MEDS: amLODIPine 5 MG TABLET PER TUBE SCH (09:48)
[2019-09-26] MEDS: predniSONE 20 MG TABLET PO SCH (09:48)
[2019-09-26] MEDS: FUROSEMIDE 40 MG/4 ML VIAL IV SCH (09:49)
[2019-09-26] MEDS: NYSTATIN POWDER 15 GM BOTTLE TOP SCH ×3 (09:50→20:36)
[2019-09-26] MEDS: DESITIN 4OZ/NYSTATIN 15 GRAM MIXTURE PASTE TOP SCH ×2 (09:50→20:36)
[2019-09-26] MEDS: MULTIVITAMIN LIQUID (CENTRUM) 60 ML BOTTLE PO SCH (09:50)
[2019-09-26] MEDS: DEXMEDETOMIDINE 400 MCG in SODIUM CHLORIDE 0.9% 96 ML IV PRN ×2 (13:11→19:37)
[2019-09-26] MEDS: ENOXAPARIN 40 MG/0.4 ML SYRINGE SUBCUT SCH (20:11)
[2019-09-26] MEDS: INSULIN GLARGINE 100 UNIT/ML SUBCUT SCH (20:12)
[2019-09-26] MEDS: FAMOTIDINE INJ 40 MG in SODIUM CHLORIDE 0.9% 100 ML IV SCH (23:09)
[2019-09-27] MEDS: INSULIN LISPRO 100 UNIT/ML SUBCUT SCH ×4 (00:20→17:55)
[2019-09-27] MEDS: ALBUTEROL/IPRATROPIUM 3 ML NEB RESP TX SCH ×4 (00:58→19:32)
[2019-09-27] MEDS: MORPHINE 4 MG/1 ML VIAL IV PRN ×4 (01:51→23:30)
[2019-09-27] MEDS: DEXMEDETOMIDINE 400 MCG in SODIUM CHLORIDE 0.9% 96 ML IV PRN ×4 (01:53→23:13)
[2019-09-27] MEDS: MEROPENEM 500 MG in SODIUM CHLORIDE 0.9% 100 ML IV SCH ×4 (02:27→20:46)
[2019-09-27 03:45] LABS: Basophils % 0.1 % (0.0-0.8); Eosinophils # 0.1 10*3/uL (0.0-0.87); Eosinophils % 0.8 % (0.00-10.9); Hemoglobin 12.2 GM/DL (12.0-16.0); Immature Granulocytes % 1.7 %; Immature Granulocytes Absolute 0.17 #; Lymphocytes # 1.3 10*3/uL (1.4-4.0); Lymphocytes % 13.5 % (21.3-54.2); Mean Corpuscular HGB Conc 32.1 GM/DL (32-36); Mean Platelet Volume 10.6 FL (9.6-12.0); Monocytes % 9.1 % (1.7-12.7); Neutrophils % 74.8 % (38.7-73.9); Platelet Count 228 T/CUMM (130-400); Red Blood Count 4.27 MC/CUMM (3.8-5.5); White Blood Count 9.8 T/CUMM (4-12)
[2019-09-27 04:04] LABS: Calcium 8.4 MG/DL (8.5-10.1); Osmolality,Calculated 283.5 MOS/KG (273-304)
[2019-09-27 04:14] LABS: Prealbumin 24.8 MG/DL (20-40)
[2019-09-27 04:27] LABS: ABG Base Excess 3.1 MMOL/L (-2.5-2.5); ABG HCO3 27.2 MMOL/L (20-26); ABG Oxygen Saturation 99.5 % (95-100); ABG PCO2 34.7 MM HG (35-48); ABG PH 7.486 (7.35-7.45); ABG TCO2 22.9 MMOL/L (23-27); Allen Test Positive; Pt O2 Delivery Device Ventilator
[2019-09-27] MEDS: FUROSEMIDE 40 MG/4 ML VIAL IV SCH (08:35)
[2019-09-27] MEDS: predniSONE 20 MG TABLET PO SCH (08:35)
[2019-09-27] MEDS: MULTIVITAMIN LIQUID (CENTRUM) 60 ML BOTTLE PO SCH (08:35)
[2019-09-27] MEDS: amLODIPine 5 MG TABLET PER TUBE SCH (08:35)
[2019-09-27] MEDS: CARBIDOPA/LEVODOPA 10-100 MG TABLET PO SCH ×3 (08:35→20:46)
[2019-09-27] MEDS: NYSTATIN POWDER 15 GM BOTTLE TOP SCH ×3 (11:50→21:27)
[2019-09-27] MEDS: DESITIN 4OZ/NYSTATIN 15 GRAM MIXTURE PASTE TOP SCH ×2 (11:50→21:27)
[2019-09-27] MEDS: INSULIN GLARGINE 100 UNIT/ML SUBCUT SCH (20:46)
[2019-09-27] MEDS: ENOXAPARIN 40 MG/0.4 ML SYRINGE SUBCUT SCH (20:47)
[2019-09-27] MEDS: FAMOTIDINE INJ 40 MG in SODIUM CHLORIDE 0.9% 100 ML IV SCH (23:12)
[2019-09-28] MEDS: INSULIN LISPRO 100 UNIT/ML SUBCUT SCH ×4 (00:10→17:30)
[2019-09-28] MEDS: ALBUTEROL/IPRATROPIUM 3 ML NEB RESP TX SCH ×4 (01:48→19:37)
[2019-09-28] MEDS: MEROPENEM 500 MG in SODIUM CHLORIDE 0.9% 100 ML IV SCH ×4 (02:15→21:29)
[2019-09-28] MEDS: MORPHINE 4 MG/1 ML VIAL IV PRN ×2 (03:37→18:49)
[2019-09-28 03:52] LABS: ABG Base Excess 2.3 MMOL/L (-2.5-2.5); ABG HCO3 27.6 MMOL/L (20-26); ABG Oxygen Saturation 98.4 % (95-100); ABG PCO2 45.4 MM HG (35-48); ABG PH 7.401 (7.35-7.45); ABG PO2 131.6 MM HG (80-95); ABG TCO2 28.9 MMOL/L (23-27); Allen Test Positive; Pt O2 Delivery Device Ventilator
[2019-09-28 04:59] LABS: Basophils % 0.2 % (0.0-0.8); Eosinophils # 0.1 10*3/uL (0.0-0.87); Hematocrit 37.4 VOL% (35.7-47.0); Hemoglobin 12.1 GM/DL (12.0-16.0); Immature Granulocytes % 1.5 %; Immature Granulocytes Absolute 0.13 #; Lymphocytes # 1.3 10*3/uL (1.4-4.0); Lymphocytes % 14.4 % (21.3-54.2); Mean Corpuscular HGB Conc 32.4 GM/DL (32-36); Mean Corpuscular Volume 87.2 FL (87-102); Mean Platelet Volume 11.1 FL (9.6-12.0); Monocytes % 10.7 % (1.7-12.7); Neutrophils % 72.2 % (38.7-73.9); Platelet Count 250 T/CUMM (130-400); Red Blood Count 4.29 MC/CUMM (3.8-5.5); White Blood Count 8.7 T/CUMM (4-12)
[2019-09-28 05:15] LABS: Hypochromasia 1+; Platelet Estimate Adequate
[2019-09-28] MEDS: DEXMEDETOMIDINE 400 MCG in SODIUM CHLORIDE 0.9% 96 ML IV PRN (05:44)
[2019-09-28 05:48] LABS: Calcium 8.4 MG/DL (8.5-10.1); Osmolality,Calculated 285.5 MOS/KG (273-304)
[2019-09-28] MEDS: FUROSEMIDE 40 MG/4 ML VIAL IV SCH (07:10)
[2019-09-28] MEDS: POTASSIUM CHLORIDE RIDER 20 MEQ in PREMIX 1 EACH IV PRN (07:10)
[2019-09-28] MEDS: MULTIVITAMIN LIQUID (CENTRUM) 60 ML BOTTLE PO SCH (08:05)
[2019-09-28] MEDS: amLODIPine 5 MG TABLET PER TUBE SCH (08:05)
[2019-09-28] MEDS: CARBIDOPA/LEVODOPA 10-100 MG TABLET PO SCH ×3 (08:05→21:23)
[2019-09-28] MEDS: predniSONE 20 MG TABLET PO SCH (08:05)
[2019-09-28] MEDS: POTASSIUM CHLORIDE RIDER 10 MEQ in PREMIX 1 EACH IV PRN (08:15)
[2019-09-28] MEDS: NYSTATIN POWDER 15 GM BOTTLE TOP SCH ×3 (10:30→21:36)
[2019-09-28] MEDS: DESITIN 4OZ/NYSTATIN 15 GRAM MIXTURE PASTE TOP SCH ×2 (10:30→21:36)
[2019-09-28] MEDS ORDERED: DIGOXIN 0.5 MG/2 ML AMP IV ONE ×2 (18:57→21:15)
[2019-09-28] MEDS: INSULIN GLARGINE 100 UNIT/ML SUBCUT SCH (21:36)
[2019-09-28] MEDS: ENOXAPARIN 40 MG/0.4 ML SYRINGE SUBCUT SCH (21:36)
[2019-09-28] MEDS: FAMOTIDINE INJ 40 MG in SODIUM CHLORIDE 0.9% 100 ML IV SCH (22:30)
[2019-09-29] MEDS: ALBUTEROL/IPRATROPIUM 3 ML NEB RESP TX SCH ×4 (01:48→19:09)
[2019-09-29] MEDS: INSULIN LISPRO 100 UNIT/ML SUBCUT SCH ×4 (01:50→18:17)
[2019-09-29] MEDS: MEROPENEM 500 MG in SODIUM CHLORIDE 0.9% 100 ML IV SCH ×4 (02:00→21:11)
[2019-09-29 04:40] LABS: Calcium 8.7 MG/DL (8.5-10.1); Osmolality,Calculated 280.5 MOS/KG (273-304)
[2019-09-29] MEDS: POTASSIUM CHLORIDE RIDER 20 MEQ in PREMIX 1 EACH IV PRN ×2 (05:19→08:19)
[2019-09-29] MEDS: NYSTATIN POWDER 15 GM BOTTLE TOP SCH ×3 (08:19→21:13)
[2019-09-29] MEDS: DESITIN 4OZ/NYSTATIN 15 GRAM MIXTURE PASTE TOP SCH ×2 (08:19→21:14)
[2019-09-29] MEDS: CARBIDOPA/LEVODOPA 10-100 MG TABLET PO SCH ×3 (08:19→21:13)
[2019-09-29] MEDS: FUROSEMIDE 40 MG/4 ML VIAL IV SCH (08:19)
[2019-09-29] MEDS: predniSONE 20 MG TABLET PO SCH (08:19)
[2019-09-29] MEDS: amLODIPine 5 MG TABLET PER TUBE SCH (08:19)
[2019-09-29] MEDS: MULTIVITAMIN LIQUID (CENTRUM) 60 ML BOTTLE PO SCH (09:42)
[2019-09-29] MEDS: INSULIN GLARGINE 100 UNIT/ML SUBCUT SCH (21:12)
[2019-09-29] MEDS: ENOXAPARIN 40 MG/0.4 ML SYRINGE SUBCUT SCH (21:13)
[2019-09-30] MEDS: ALBUTEROL/IPRATROPIUM 3 ML NEB RESP TX SCH ×4 (00:30→19:27)
[2019-09-30] MEDS: INSULIN LISPRO 100 UNIT/ML SUBCUT SCH ×4 (00:48→18:00)
[2019-09-30] MEDS: MEROPENEM 500 MG in SODIUM CHLORIDE 0.9% 100 ML IV SCH ×4 (03:00→20:54)
[2019-09-30 06:16] LABS: Calcium 8.7 MG/DL (8.5-10.1); Osmolality,Calculated 279.7 MOS/KG (273-304)
[2019-09-30] MEDS: POTASSIUM CHLORIDE RIDER 10 MEQ in PREMIX 1 EACH IV PRN ×3 (07:44→16:09)
[2019-09-30] MEDS: NYSTATIN POWDER 15 GM BOTTLE TOP SCH ×3 (08:00→20:57)
[2019-09-30] MEDS: DESITIN 4OZ/NYSTATIN 15 GRAM MIXTURE PASTE TOP SCH ×2 (08:00→20:57)
[2019-09-30] MEDS ORDERED: POTASSIUM CHLORIDE 20 MEQ/15 ML UDCUP PO ONE (08:10)
[2019-09-30 08:49] LABS: Basophils % 0.3 % (0.0-0.8); Eosinophils # 0.1 10*3/uL (0.0-0.87); Eosinophils % 0.6 % (0.00-10.9); Hematocrit 46.8 VOL% (35.7-47.0); Immature Granulocytes % 1.2 %; Immature Granulocytes Absolute 0.16 #; Lymphocytes # 3.1 10*3/uL (1.4-4.0); Lymphocytes % 23.2 % (21.3-54.2); Mean Corpuscular HGB Conc 31.2 GM/DL (32-36); Mean Corpuscular Volume 89.5 FL (87-102); Mean Platelet Volume 11.1 FL (9.6-12.0); Monocytes % 12.2 % (1.7-12.7); Neutrophils % 62.5 % (38.7-73.9); Red Cell Distribution Width 14.1 % (9.3-17.3)
[2019-09-30 08:50] LABS: Hemoglobin 14.6 GM/DL (12.0-16.0); Platelet Count 391 T/CUMM (130-400); Red Blood Count 5.23 MC/CUMM (3.8-5.5); White Blood Count 13.3 T/CUMM (4-12)
[2019-09-30] MEDS: amLODIPine 5 MG TABLET PER TUBE SCH (10:14)
[2019-09-30] MEDS: PANTOPRAZOLE 40 MG TABLET PO SCH (10:14)
[2019-09-30] MEDS: CARBIDOPA/LEVODOPA 10-100 MG TABLET PO SCH ×3 (10:14→20:57)
[2019-09-30] MEDS: predniSONE 20 MG TABLET PO SCH ×2 (10:14→14:50)
[2019-09-30] MEDS: FUROSEMIDE 40 MG/4 ML VIAL IV SCH (14:52)
[2019-09-30] MEDS: MULTIVITAMIN LIQUID (CENTRUM) 60 ML BOTTLE PO SCH (17:05)
[2019-09-30] MEDS: INSULIN GLARGINE 100 UNIT/ML SUBCUT SCH (20:56)
[2019-09-30] MEDS: ENOXAPARIN 40 MG/0.4 ML SYRINGE SUBCUT SCH (20:57)
[2019-10-01] MEDS: INSULIN LISPRO 100 UNIT/ML SUBCUT SCH ×4 (00:08→19:06)
[2019-10-01] MEDS: ALBUTEROL/IPRATROPIUM 3 ML NEB RESP TX SCH ×4 (01:16→19:41)
[2019-10-01] MEDS: MEROPENEM 500 MG in SODIUM CHLORIDE 0.9% 100 ML IV SCH ×4 (02:11→20:24)
[2019-10-01 06:26] LABS: Calcium 8.4 MG/DL (8.5-10.1); Osmolality,Calculated 279.5 MOS/KG (273-304)
[2019-10-01] MEDS: POTASSIUM CHLORIDE RIDER 10 MEQ in PREMIX 1 EACH IV PRN ×3 (08:07→14:05)
[2019-10-01] MEDS: amLODIPine 5 MG TABLET PER TUBE SCH (09:02)
[2019-10-01] MEDS: predniSONE 20 MG TABLET PO SCH (09:02)
[2019-10-01] MEDS: PANTOPRAZOLE 40 MG TABLET PO SCH (09:02)
[2019-10-01] MEDS: CARBIDOPA/LEVODOPA 10-100 MG TABLET PO SCH ×3 (09:02→20:22)
[2019-10-01] MEDS: MULTIVITAMIN LIQUID (CENTRUM) 60 ML BOTTLE PO SCH (12:16)
[2019-10-01] MEDS: DESITIN 4OZ/NYSTATIN 15 GRAM MIXTURE PASTE TOP SCH ×2 (12:34→20:24)
[2019-10-01] MEDS: NYSTATIN POWDER 15 GM BOTTLE TOP SCH ×3 (12:35→20:23)
[2019-10-01] MEDS: ZALEPLON 5 MG CAPSULE PO PRN (20:22)
[2019-10-01] MEDS: INSULIN GLARGINE 100 UNIT/ML SUBCUT SCH (20:22)
[2019-10-01] MEDS: ENOXAPARIN 40 MG/0.4 ML SYRINGE SUBCUT SCH (20:22)
[2019-10-02] MEDS: INSULIN LISPRO 100 UNIT/ML SUBCUT SCH ×4 (00:09→18:24)
[2019-10-02] MEDS: ALBUTEROL/IPRATROPIUM 3 ML NEB RESP TX SCH ×4 (00:34→20:03)
[2019-10-02] MEDS: MEROPENEM 500 MG in SODIUM CHLORIDE 0.9% 100 ML IV SCH ×4 (03:00→20:23)
[2019-10-02 08:06] LABS: Basophils % 0.4 % (0.0-0.8); Eosinophils # 0.2 10*3/uL (0.0-0.87); Eosinophils % 1.5 % (0.00-10.9); Hematocrit 42.3 VOL% (35.7-47.0); Hemoglobin 13.3 GM/DL (12.0-16.0); Lymphocytes # 2.2 10*3/uL (1.4-4.0); Lymphocytes % 21.6 % (21.3-54.2); Mean Corpuscular HGB Conc 31.4 GM/DL (32-36); Mean Corpuscular Volume 89.2 FL (87-102); Mean Platelet Volume 10.3 FL (9.6-12.0); Monocytes % 12.4 % (1.7-12.7); Neutrophils % 63.1 % (38.7-73.9); Platelet Count 323 T/CUMM (130-400); Red Blood Count 4.74 MC/CUMM (3.8-5.5); White Blood Count 10.1 T/CUMM (4-12)
[2019-10-02] MEDS: predniSONE 20 MG TABLET PO SCH (10:06)
[2019-10-02] MEDS: CARBIDOPA/LEVODOPA 10-100 MG TABLET PO SCH ×3 (10:07→20:24)
[2019-10-02] MEDS: NYSTATIN POWDER 15 GM BOTTLE TOP SCH ×3 (10:07→20:24)
[2019-10-02] MEDS: PANTOPRAZOLE 40 MG TABLET PO SCH (10:07)
[2019-10-02] MEDS: amLODIPine 5 MG TABLET PER TUBE SCH (10:07)
[2019-10-02] MEDS: DESITIN 4OZ/NYSTATIN 15 GRAM MIXTURE PASTE TOP SCH ×2 (10:08→20:24)
[2019-10-02] MEDS: MULTIVITAMIN LIQUID (CENTRUM) 60 ML BOTTLE PO SCH (10:22)
[2019-10-02] MEDS: INSULIN GLARGINE 100 UNIT/ML SUBCUT SCH (20:23)
[2019-10-02] MEDS: ENOXAPARIN 40 MG/0.4 ML SYRINGE SUBCUT SCH (20:24)
[2019-10-02] MEDS: ZALEPLON 5 MG CAPSULE PO PRN (20:24)
[2019-10-03] MEDS: INSULIN LISPRO 100 UNIT/ML SUBCUT SCH ×5 (01:00→23:56)
[2019-10-03] MEDS: MEROPENEM 500 MG in SODIUM CHLORIDE 0.9% 100 ML IV SCH ×3 (01:08→14:55)
[2019-10-03] MEDS: ALBUTEROL/IPRATROPIUM 3 ML NEB RESP TX SCH ×4 (01:20→19:33)
[2019-10-03] MEDS: MORPHINE 4 MG/1 ML VIAL IV PRN ×3 (03:57→23:42)
[2019-10-03] MEDS: predniSONE 20 MG TABLET PO SCH (09:09)
[2019-10-03] MEDS: amLODIPine 5 MG TABLET PER TUBE SCH (09:09)
[2019-10-03] MEDS: CARBIDOPA/LEVODOPA 10-100 MG TABLET PO SCH ×3 (09:09→21:04)
[2019-10-03] MEDS: NYSTATIN POWDER 15 GM BOTTLE TOP SCH ×3 (09:15→21:04)
[2019-10-03] MEDS: PANTOPRAZOLE 40 MG TABLET PO SCH (10:00)
[2019-10-03] MEDS: MULTIVITAMIN LIQUID (CENTRUM) 60 ML BOTTLE PO SCH (10:00)
[2019-10-03] MEDS: DESITIN 4OZ/NYSTATIN 15 GRAM MIXTURE PASTE TOP SCH ×2 (10:00→21:04)
[2019-10-03 11:45] LABS: Calcium 8.5 MG/DL (8.5-10.1); Osmolality,Calculated 283.4 MOS/KG (273-304)
[2019-10-03] MEDS: ZALEPLON 5 MG CAPSULE PO PRN (21:03)
[2019-10-03] MEDS: INSULIN GLARGINE 100 UNIT/ML SUBCUT SCH (21:04)
[2019-10-03] MEDS: ENOXAPARIN 40 MG/0.4 ML SYRINGE SUBCUT SCH (21:04)
[2019-10-04] MEDS: ALBUTEROL/IPRATROPIUM 3 ML NEB RESP TX SCH ×4 (01:59→19:58)
[2019-10-04] MEDS: INSULIN LISPRO 100 UNIT/ML SUBCUT SCH ×3 (06:47→20:04)
[2019-10-04] MEDS: MORPHINE 4 MG/1 ML VIAL IV PRN (08:15)
[2019-10-04] MEDS: amLODIPine 5 MG TABLET PER TUBE SCH (08:48)
[2019-10-04] MEDS: MULTIVITAMIN LIQUID (CENTRUM) 60 ML BOTTLE PO SCH (08:48)
[2019-10-04] MEDS: CARBIDOPA/LEVODOPA 10-100 MG TABLET PO SCH ×3 (08:48→22:33)
[2019-10-04] MEDS: NYSTATIN POWDER 15 GM BOTTLE TOP SCH ×3 (08:49→22:34)
[2019-10-04] MEDS: DESITIN 4OZ/NYSTATIN 15 GRAM MIXTURE PASTE TOP SCH ×2 (08:49→22:35)
[2019-10-04] MEDS: predniSONE 20 MG TABLET PO SCH (08:49)
[2019-10-04] MEDS: PANTOPRAZOLE 40 MG TABLET PO SCH (08:53)
[2019-10-04] MEDS ORDERED: ZIPRASIDONE 20 MG/1 ML VIAL IM ONE (09:43)
[2019-10-04] MEDS ORDERED: TUBERCULIN SKIN TEST 0.1 ML SYRINGE INTRADERM ONE (11:28)
[2019-10-04] MEDS: INSULIN GLARGINE 100 UNIT/ML SUBCUT SCH (22:33)
[2019-10-04] MEDS: ENOXAPARIN 40 MG/0.4 ML SYRINGE SUBCUT SCH (22:34)
[2019-10-05] MEDS: ALBUTEROL/IPRATROPIUM 3 ML NEB RESP TX SCH ×4 (00:18→20:21)
[2019-10-05] MEDS: INSULIN LISPRO 100 UNIT/ML SUBCUT SCH ×4 (01:10→17:48)
[2019-10-05] MEDS: ZALEPLON 5 MG CAPSULE PO PRN ×2 (01:15→21:14)
[2019-10-05 06:18] LABS: Basophils % 0.2 % (0.0-0.8); Eosinophils % 0.3 % (0.00-10.9); Hematocrit 42.9 VOL% (35.7-47.0); Hemoglobin 13.6 GM/DL (12.0-16.0); Immature Granulocytes % 0.7 %; Immature Granulocytes Absolute 0.11 #; Lymphocytes # 2.7 10*3/uL (1.4-4.0); Lymphocytes % 17.3 % (21.3-54.2); Mean Corpuscular HGB Conc 31.7 GM/DL (32-36); Mean Platelet Volume 10.7 FL (9.6-12.0); Monocytes % 9.6 % (1.7-12.7); Neutrophils % 71.9 % (38.7-73.9); Platelet Count 306 T/CUMM (130-400); Red Blood Count 4.82 MC/CUMM (3.8-5.5); Red Cell Distribution Width 14.6 % (9.3-17.3); White Blood Count 15.5 T/CUMM (4-12)
[2019-10-05 06:35] LABS: Calcium 9.4 MG/DL (8.5-10.1)
[2019-10-05 06:45] LABS: Bilirubin,Total 1.2 MG/DL (0.2-1.0); Calcium 9.2 MG/DL (8.5-10.1); Total Protein 6.5 G/DL (6.4-8.3)
[2019-10-05] MEDS ORDERED: POTASSIUM CHLORIDE 20 MEQ/15 ML UDCUP PO ONE (08:04)
[2019-10-05] MEDS: PANTOPRAZOLE 40 MG TABLET PO SCH (09:47)
[2019-10-05] MEDS: CARBIDOPA/LEVODOPA 10-100 MG TABLET PO SCH ×3 (09:47→23:01)
[2019-10-05] MEDS: predniSONE 20 MG TABLET PO SCH (09:47)
[2019-10-05] MEDS: amLODIPine 5 MG TABLET PER TUBE SCH (09:48)
[2019-10-05] MEDS: NYSTATIN POWDER 15 GM BOTTLE TOP SCH ×3 (09:49→21:16)
[2019-10-05] MEDS: DESITIN 4OZ/NYSTATIN 15 GRAM MIXTURE PASTE TOP SCH ×2 (09:49→21:16)
[2019-10-05] MEDS: POTASSIUM CHLORIDE RIDER 10 MEQ in PREMIX 1 EACH IV PRN ×5 (09:51→18:13)
[2019-10-05] MEDS: MULTIVITAMIN LIQUID (CENTRUM) 60 ML BOTTLE PO SCH (10:28)
[2019-10-05] MEDS ORDERED: MAGNESIUM SULF RIDER 2 GM in PREMIX 1 EACH IV ONE (12:57)
[2019-10-05] MEDS: ALPRAZolam 0.5 MG TABLET PO PRN (16:34)
[2019-10-05] MEDS: SODIUM CHLORIDE 0.9% 1,000 ML IV SCH ×2 (17:26→21:16)
[2019-10-05 17:30] LABS: Apearance,Urine CLOUDY (Clear); Bilirubin,Urine Negative (Negative); Blood, Urine Small mg/dL (Negative); Glucose,Urine (UA) Negative (Negative); Hyaline Casts,Urine 12 /LPF (0-3); Ketones,Urine Negative (Negative); Mucus,Urine Few /LPF (Occasional); Nitrite,Urine Negative (Negative); Protein,Urine 30 MG/DL; RBC,Urine 175 /HPF (0-4); Squamous Epithelial Cell,Urine Occasional /HPF (0-10); Urine Color Yellow (Yellow); Urine Specific Gravity 1.019 (1.001-1.035); Urine Urobilinogen < 2.0 EU/DL (0.2-1.0); WBC,Urine 58 /HPF (0-6)
[2019-10-05] MEDS ORDERED: cefTRIAXone 1,000 MG in SYRINGE 1 EACH IV SCH (21:00)
[2019-10-05] MEDS: ENOXAPARIN 40 MG/0.4 ML SYRINGE SUBCUT SCH (21:15)
[2019-10-05] MEDS: INSULIN GLARGINE 100 UNIT/ML SUBCUT SCH (21:15)
[2019-10-06] MEDS: SODIUM CHLORIDE 0.9% 1,000 ML IV SCH ×3 (00:56→07:40)
[2019-10-06] MEDS: INSULIN LISPRO 100 UNIT/ML SUBCUT SCH ×4 (00:57→18:32)
[2019-10-06] MEDS: ALBUTEROL/IPRATROPIUM 3 ML NEB RESP TX SCH ×4 (01:54→20:30)
[2019-10-06 05:53] LABS: Basophils % 0.2 % (0.0-0.8); Eosinophils # 0.3 10*3/uL (0.0-0.87); Hematocrit 36.3 VOL% (35.7-47.0); Hemoglobin 11.4 GM/DL (12.0-16.0); Immature Granulocytes % 0.7 %; Immature Granulocytes Absolute 0.06 #; Lymphocytes # 1.7 10*3/uL (1.4-4.0); Lymphocytes % 19.8 % (21.3-54.2); Mean Corpuscular HGB Conc 31.4 GM/DL (32-36); Mean Corpuscular Volume 91.4 FL (87-102); Mean Platelet Volume 10.6 FL (9.6-12.0); Monocytes % 8.5 % (1.7-12.7); Neutrophils % 67.8 % (38.7-73.9); Platelet Count 209 T/CUMM (130-400); Red Blood Count 3.97 MC/CUMM (3.8-5.5); Red Cell Distribution Width 14.9 % (9.3-17.3); White Blood Count 8.7 T/CUMM (4-12)
[2019-10-06 06:21] LABS: Calcium 8.4 MG/DL (8.5-10.1); Osmolality,Calculated 285.1 MOS/KG (273-304)
[2019-10-06] MEDS ORDERED: POTASSIUM CHLORIDE 20 MEQ TABLET PO ONE (07:27)
[2019-10-06] MEDS: POTASSIUM CHLORIDE RIDER 10 MEQ in PREMIX 1 EACH IV PRN (08:31)
[2019-10-06] MEDS: predniSONE 20 MG TABLET PO SCH (09:29)
[2019-10-06] MEDS: NYSTATIN POWDER 15 GM BOTTLE TOP SCH ×3 (09:29→21:05)
[2019-10-06] MEDS: amLODIPine 5 MG TABLET PER TUBE SCH (09:29)
[2019-10-06] MEDS: MULTIVITAMIN LIQUID (CENTRUM) 60 ML BOTTLE PO SCH (09:29)
[2019-10-06] MEDS: CARBIDOPA/LEVODOPA 10-100 MG TABLET PO SCH ×3 (09:29→21:05)
[2019-10-06] MEDS: DESITIN 4OZ/NYSTATIN 15 GRAM MIXTURE PASTE TOP SCH ×2 (09:29→21:05)
[2019-10-06] MEDS: PANTOPRAZOLE 40 MG TABLET PO SCH (09:29)
[2019-10-06] MEDS: traMADol 50 MG TABLET PO PRN ×2 (12:37→22:55)
[2019-10-06] MEDS: FLUCONAZOLE INJ 200 MG in PREMIX 1 EACH IV SCH (14:31)
[2019-10-06] MEDS: ALPRAZolam 0.5 MG TABLET PO PRN (14:32)
[2019-10-06] MEDS: ZALEPLON 5 MG CAPSULE PO PRN (21:05)
[2019-10-06] MEDS: ENOXAPARIN 40 MG/0.4 ML SYRINGE SUBCUT SCH (21:05)
[2019-10-06] MEDS: INSULIN GLARGINE 100 UNIT/ML SUBCUT SCH (21:05)
[2019-10-07] MEDS: INSULIN LISPRO 100 UNIT/ML SUBCUT SCH ×4 (00:16→18:33)
[2019-10-07] MEDS: ALBUTEROL/IPRATROPIUM 3 ML NEB RESP TX SCH ×4 (01:10→20:40)
[2019-10-07] MEDS: ALPRAZolam 0.5 MG TABLET PO PRN (02:30)
[2019-10-07] MEDS: traMADol 50 MG TABLET PO PRN (04:46)
[2019-10-07 06:41] LABS: Basophils % 0.2 % (0.0-0.8); Eosinophils # 0.2 10*3/uL (0.0-0.87); Eosinophils % 1.5 % (0.00-10.9); Hematocrit 37.2 VOL% (35.7-47.0); Hemoglobin 11.4 GM/DL (12.0-16.0); Lymphocytes # 1.7 10*3/uL (1.4-4.0); Lymphocytes % 16.6 % (21.3-54.2); Mean Corpuscular HGB Conc 30.6 GM/DL (32-36); Mean Platelet Volume 10.4 FL (9.6-12.0); Monocytes % 8.5 % (1.7-12.7); Neutrophils % 72.2 % (38.7-73.9); Platelet Count 206 T/CUMM (130-400); Red Cell Distribution Width 14.9 % (9.3-17.3)
[2019-10-07 06:57] LABS: Calcium 8.6 MG/DL (8.5-10.1); Osmolality,Calculated 285.4 MOS/KG (273-304)
[2019-10-07] MEDS: amLODIPine 5 MG TABLET PER TUBE SCH ×2 (09:59→11:12)
[2019-10-07] MEDS: PANTOPRAZOLE 40 MG TABLET PO SCH ×2 (09:59→11:12)
[2019-10-07] MEDS: predniSONE 20 MG TABLET PO SCH ×2 (09:59→11:12)
[2019-10-07] MEDS: CARBIDOPA/LEVODOPA 10-100 MG TABLET PO SCH ×4 (09:59→20:25)
[2019-10-07] MEDS: DESITIN 4OZ/NYSTATIN 15 GRAM MIXTURE PASTE TOP SCH ×2 (10:00→20:25)
[2019-10-07] MEDS: NYSTATIN POWDER 15 GM BOTTLE TOP SCH ×3 (10:00→20:25)
[2019-10-07 10:46] LABS: Apearance,Urine CLEAR (Clear); Bilirubin,Urine Negative (Negative); Blood, Urine Negative (Negative); Glucose,Urine (UA) Negative (Negative); Ketones,Urine 5 mg/dL (Negative); Mucus,Urine Occasional /LPF (Occasional); Nitrite,Urine Negative (Negative); Protein,Urine Negative; RBC,Urine 5 /HPF (0-4); Squamous Epithelial Cell,Urine Occasional /HPF (0-10); Urine Color Yellow (Yellow); Urine Specific Gravity 1.015 (1.001-1.035); Urine Urobilinogen < 2.0 EU/DL (0.2-1.0); WBC,Urine 7 /HPF (0-6)
[2019-10-07] MEDS: MULTIVITAMIN LIQUID (CENTRUM) 60 ML BOTTLE PO SCH (11:11)
[2019-10-07] MEDS: FLUCONAZOLE INJ 200 MG in PREMIX 1 EACH IV SCH (12:10)
[2019-10-07] MEDS ORDERED: ACETAMINOPHEN 325 MG TABLET PO PRN (14:12)
[2019-10-07] MEDS: ZALEPLON 5 MG CAPSULE PO PRN (20:25)
[2019-10-07] MEDS: INSULIN GLARGINE 100 UNIT/ML SUBCUT SCH (20:26)
[2019-10-07] MEDS: ENOXAPARIN 40 MG/0.4 ML SYRINGE SUBCUT SCH (21:14)
[2019-10-08] MEDS: INSULIN LISPRO 100 UNIT/ML SUBCUT SCH ×4 (00:32→18:33)
[2019-10-08] MEDS: ALBUTEROL/IPRATROPIUM 3 ML NEB RESP TX SCH ×4 (03:01→19:10)
[2019-10-08 06:48] LABS: Calcium 8.7 MG/DL (8.5-10.1); Osmolality,Calculated 284.4 MOS/KG (273-304)
[2019-10-08] MEDS ORDERED: METOPROLOL TARTRATE 5 MG/5 ML VIAL IV ONE (07:47)
[2019-10-08] MEDS: DESITIN 4OZ/NYSTATIN 15 GRAM MIXTURE PASTE TOP SCH ×2 (08:55→20:42)
[2019-10-08] MEDS: MULTIVITAMIN LIQUID (CENTRUM) 60 ML BOTTLE PO SCH (08:55)
[2019-10-08] MEDS: predniSONE 20 MG TABLET PO SCH (08:55)
[2019-10-08] MEDS: amLODIPine 5 MG TABLET PER TUBE SCH (08:55)
[2019-10-08] MEDS: PANTOPRAZOLE 40 MG TABLET PO SCH (08:55)
[2019-10-08] MEDS: POTASSIUM CHLORIDE 20 MEQ TABLET PO SCH (08:55)
[2019-10-08] MEDS: CARBIDOPA/LEVODOPA 10-100 MG TABLET PO SCH ×3 (08:55→20:40)
[2019-10-08] MEDS: NYSTATIN POWDER 15 GM BOTTLE TOP SCH ×3 (08:56→20:42)
[2019-10-08] MEDS ORDERED: FLUCONAZOLE 200 MG TABLET PO SCH (09:00)
[2019-10-08] MEDS ORDERED: METOPROLOL SUCCINATE XL 25 MG TABLET PO SCH ×2 (09:00→21:00)
[2019-10-08 10:31] LABS: Risk Ratio 3.59; VLDL CHOLESTEROL 22.2 MG/DL
[2019-10-08] MEDS: ASCORBIC ACID 500 MG TABLET PO SCH ×2 (11:01→20:39)
[2019-10-08] MEDS: LEVOFLOXACIN 750 MG TABLET PO SCH (11:01)
[2019-10-08] MEDS: AMIODARONE 200 MG TABLET PO SCH ×2 (11:01→20:39)
[2019-10-08] MEDS: APIXABAN 5 MG TABLET PO SCH ×2 (11:02→20:40)
[2019-10-08] MEDS: DILTIAZEM 30 MG TABLET PO SCH ×3 (13:08→20:39)
[2019-10-08] MEDS ORDERED: DIGOXIN 0.5 MG/2 ML AMP IV ONE (15:02)
[2019-10-08] MEDS: QUEtiapine 25 MG TABLET PO SCH (16:42)
[2019-10-08] MEDS: ATORVASTATIN 20 MG TABLET PO SCH (20:39)
[2019-10-08] MEDS: INSULIN GLARGINE 100 UNIT/ML SUBCUT SCH (20:39)
[2019-10-08] MEDS: ZALEPLON 5 MG CAPSULE PO PRN (23:52)
[2019-10-09] MEDS: ALBUTEROL/IPRATROPIUM 3 ML NEB RESP TX SCH ×4 (00:45→19:05)
[2019-10-09] MEDS: INSULIN LISPRO 100 UNIT/ML SUBCUT SCH ×4 (02:02→18:14)
[2019-10-09] MEDS: METOPROLOL TARTRATE 5 MG/5 ML VIAL IV PRN (03:42)
[2019-10-09] MEDS ORDERED: FUROSEMIDE 40 MG/4 ML VIAL IV ONE (07:01)
[2019-10-09 07:33] LABS: Basophils % 0.1 % (0.0-0.8); Eosinophils % 0.4 % (0.00-10.9); Hematocrit 35.9 VOL% (35.7-47.0); Hemoglobin 11.2 GM/DL (12.0-16.0); Immature Granulocytes Absolute 0.07 #; Lymphocytes # 1.1 10*3/uL (1.4-4.0); Lymphocytes % 15.9 % (21.3-54.2); Mean Corpuscular HGB Conc 31.2 GM/DL (32-36); Mean Corpuscular Volume 91.6 FL (87-102); Monocytes % 8.7 % (1.7-12.7); Neutrophils % 73.9 % (38.7-73.9); Platelet Count 170 T/CUMM (130-400); Red Blood Count 3.92 MC/CUMM (3.8-5.5); Red Cell Distribution Width 15.1 % (9.3-17.3)
[2019-10-09 07:42] LABS: Calcium 8.9 MG/DL (8.5-10.1); Osmolality,Calculated 279.5 MOS/KG (273-304)
[2019-10-09] MEDS: DILTIAZEM 30 MG TABLET PO SCH ×4 (08:19→13:15)
[2019-10-09] MEDS: POTASSIUM CHLORIDE 20 MEQ TABLET PO SCH (08:20)
[2019-10-09] MEDS: APIXABAN 5 MG TABLET PO SCH ×2 (08:20→21:53)
[2019-10-09] MEDS: CARBIDOPA/LEVODOPA 10-100 MG TABLET PO SCH ×3 (08:20→21:53)
[2019-10-09] MEDS: AMIODARONE 200 MG TABLET PO SCH ×2 (08:21→21:53)
[2019-10-09] MEDS: ASCORBIC ACID 500 MG TABLET PO SCH ×2 (08:22→21:53)
[2019-10-09] MEDS: QUEtiapine 25 MG TABLET PO SCH (08:22)
[2019-10-09] MEDS: LEVOFLOXACIN 750 MG TABLET PO SCH (08:23)
[2019-10-09] MEDS: PANTOPRAZOLE 40 MG TABLET PO SCH (08:23)
[2019-10-09] MEDS: predniSONE 20 MG TABLET PO SCH (08:23)
[2019-10-09] MEDS: MULTIVITAMIN LIQUID (CENTRUM) 60 ML BOTTLE PO SCH (08:24)
[2019-10-09] MEDS: DESITIN 4OZ/NYSTATIN 15 GRAM MIXTURE PASTE TOP SCH ×2 (08:24→21:53)
[2019-10-09] MEDS: NYSTATIN POWDER 15 GM BOTTLE TOP SCH ×3 (08:24→21:53)
[2019-10-09] MEDS ORDERED: METOPROLOL SUCCINATE XL 25 MG TABLET PO SCH (09:00)
[2019-10-09] MEDS ORDERED: POTASSIUM CHLORIDE 20 MEQ TABLET PO ONE (15:09)
[2019-10-09] MEDS ORDERED: DIGOXIN 0.5 MG/2 ML AMP IV ONE (15:11)
[2019-10-09] MEDS: DILTIAZEM 60 MG TABLET PO SCH ×2 (15:40→18:15)
[2019-10-09] MEDS: ATORVASTATIN 20 MG TABLET PO SCH (21:53)
[2019-10-09] MEDS: INSULIN GLARGINE 100 UNIT/ML SUBCUT SCH (22:14)
[2019-10-10] MEDS: ALBUTEROL/IPRATROPIUM 3 ML NEB RESP TX SCH ×4 (00:47→19:02)
[2019-10-10] MEDS: INSULIN LISPRO 100 UNIT/ML SUBCUT SCH ×4 (00:47→17:51)
[2019-10-10] MEDS: DILTIAZEM 60 MG TABLET PO SCH ×5 (01:32→23:30)
[2019-10-10 06:34] LABS: Basophils % 0.2 % (0.0-0.8); Eosinophils # 0.1 10*3/uL (0.0-0.87); Eosinophils % 0.8 % (0.00-10.9); Hematocrit 37.5 VOL% (35.7-47.0); Hemoglobin 11.9 GM/DL (12.0-16.0); Lymphocytes # 1.9 10*3/uL (1.4-4.0); Lymphocytes % 19.5 % (21.3-54.2); Mean Corpuscular HGB Conc 31.7 GM/DL (32-36); Mean Corpuscular Volume 91.2 FL (87-102); Mean Platelet Volume 10.7 FL (9.6-12.0); Monocytes % 9.3 % (1.7-12.7); Neutrophils % 69.2 % (38.7-73.9); Platelet Count 228 T/CUMM (130-400); Red Blood Count 4.11 MC/CUMM (3.8-5.5); Red Cell Distribution Width 15.1 % (9.3-17.3); White Blood Count 9.5 T/CUMM (4-12)
[2019-10-10 06:47] LABS: Calcium 8.8 MG/DL (8.5-10.1); Osmolality,Calculated 279.4 MOS/KG (273-304)
[2019-10-10] MEDS ORDERED: MAGNESIUM SULF RIDER 2 GM in PREMIX 1 EACH IV ONE ×2 (06:52→07:57)
[2019-10-10] MEDS: MULTIVITAMIN LIQUID (CENTRUM) 60 ML BOTTLE PO SCH (08:23)
[2019-10-10] MEDS: NYSTATIN POWDER 15 GM BOTTLE TOP SCH ×3 (08:29→20:43)
[2019-10-10] MEDS: DESITIN 4OZ/NYSTATIN 15 GRAM MIXTURE PASTE TOP SCH ×2 (08:29→20:43)
[2019-10-10] MEDS: ASCORBIC ACID 500 MG TABLET PO SCH ×2 (08:30→20:44)
[2019-10-10] MEDS: APIXABAN 5 MG TABLET PO SCH ×2 (08:30→20:44)
[2019-10-10] MEDS: AMIODARONE 200 MG TABLET PO SCH ×2 (08:30→20:44)
[2019-10-10] MEDS: POTASSIUM CHLORIDE 20 MEQ TABLET PO SCH (08:30)
[2019-10-10] MEDS: PANTOPRAZOLE 40 MG TABLET PO SCH (08:31)
[2019-10-10] MEDS: predniSONE 10 MG TABLET PO SCH (08:31)
[2019-10-10] MEDS: LEVOFLOXACIN INJ 750 MG in PREMIX 1 EACH IV SCH (08:31)
[2019-10-10] MEDS: QUEtiapine 25 MG TABLET PO SCH (08:31)
[2019-10-10] MEDS: CARBIDOPA/LEVODOPA 10-100 MG TABLET PO SCH ×3 (08:31→20:44)
[2019-10-10] MEDS: MAGNESIUM CHLORIDE 64 MG TABLET PO SCH ×2 (10:51→20:43)
[2019-10-10] MEDS: POTASSIUM CHLORIDE RIDER 20 MEQ in PREMIX 1 EACH IV PRN ×2 (10:54→12:14)
[2019-10-10] MEDS: METOPROLOL TARTRATE 5 MG/5 ML VIAL IV PRN (15:32)
[2019-10-10] MEDS ORDERED: METOPROLOL TARTRATE 5 MG/5 ML VIAL IV ONE (18:25)
[2019-10-10] MEDS: ATORVASTATIN 20 MG TABLET PO SCH (20:44)
[2019-10-10] MEDS: ZALEPLON 5 MG CAPSULE PO PRN (20:44)
[2019-10-10] MEDS: INSULIN GLARGINE 100 UNIT/ML SUBCUT SCH (20:44)
[2019-10-11] MEDS: ALBUTEROL/IPRATROPIUM 3 ML NEB RESP TX SCH ×2 (00:32→07:09)
[2019-10-11] MEDS: INSULIN LISPRO 100 UNIT/ML SUBCUT SCH ×3 (01:03→13:39)
[2019-10-11] MEDS: METOPROLOL TARTRATE 5 MG/5 ML VIAL IV PRN (04:14)
[2019-10-11 06:12] LABS: Basophils % 0.3 % (0.0-0.8); Eosinophils # 0.1 10*3/uL (0.0-0.87); Hematocrit 38.4 VOL% (35.7-47.0); Hemoglobin 11.8 GM/DL (12.0-16.0); Immature Granulocytes % 1.3 %; Immature Granulocytes Absolute 0.12 #; Lymphocytes # 1.6 10*3/uL (1.4-4.0); Mean Corpuscular HGB Conc 30.7 GM/DL (32-36); Mean Corpuscular Volume 92.8 FL (87-102); Mean Platelet Volume 10.5 FL (9.6-12.0); Monocytes % 10.7 % (1.7-12.7); Neutrophils % 69.7 % (38.7-73.9); Platelet Count 255 T/CUMM (130-400); Red Blood Count 4.14 MC/CUMM (3.8-5.5); Red Cell Distribution Width 15.4 % (9.3-17.3); White Blood Count 9.4 T/CUMM (4-12)
[2019-10-11] MEDS: DILTIAZEM 60 MG TABLET PO SCH ×3 (06:17→18:00)
[2019-10-11 06:36] LABS: Osmolality,Calculated 281.5 MOS/KG (273-304)
[2019-10-11] MEDS ORDERED: DIGOXIN 0.5 MG/2 ML AMP IV ONE ×2 (09:43→11:45)
[2019-10-11] MEDS: AMIODARONE 200 MG TABLET PO SCH (10:01)
[2019-10-11] MEDS: LEVOFLOXACIN INJ 750 MG in PREMIX 1 EACH IV SCH (10:02)
[2019-10-11] MEDS: APIXABAN 5 MG TABLET PO SCH (10:02)
[2019-10-11] MEDS: POTASSIUM CHLORIDE 20 MEQ TABLET PO SCH (10:02)
[2019-10-11] MEDS: QUEtiapine 25 MG TABLET PO SCH (10:03)
[2019-10-11] MEDS: PANTOPRAZOLE 40 MG TABLET PO SCH (10:03)
[2019-10-11] MEDS: CARBIDOPA/LEVODOPA 10-100 MG TABLET PO SCH ×2 (10:03→15:28)
[2019-10-11] MEDS: predniSONE 10 MG TABLET PO SCH (10:03)
[2019-10-11] MEDS: NYSTATIN POWDER 15 GM BOTTLE TOP SCH ×2 (10:04→15:28)
[2019-10-11] MEDS: MAGNESIUM CHLORIDE 64 MG TABLET PO SCH (10:04)
[2019-10-11] MEDS: DESITIN 4OZ/NYSTATIN 15 GRAM MIXTURE PASTE TOP SCH (10:04)
[2019-10-11] MEDS: ASCORBIC ACID 500 MG TABLET PO SCH (13:40)
[2019-10-11] MEDS: MULTIVITAMIN LIQUID (CENTRUM) 60 ML BOTTLE PO SCH (13:49)
[2019-10-11 20:05] VITALS: BP 107/64
[2019-10-12] MEDS ORDERED: DIGOXIN 0.125 MG TABLET PO SCH (13:00)
== END 2019-10-11 17:56 | DRG 207 ==
LOC: EDBD → EDUNIT# → N.ED 12:31 → N.EDINP 14:27 → SUATTDRO 14:27 → N.EDINP 09-17 13:33 → N.CC 09-17 13:46 → N.ICU 09-18 21:51 → N.3E 09-29 17:07
PROVIDERS: ADMIT Internal Medicine; ATTEND Family Medicine

== ENCOUNTER 2019-10-18 19:14 | Inpatient (IN) ==
[2019-10-18] MEDS ORDERED: DEXTROSE 50% 25 GM/50 ML SYRINGE IV ONE (19:32)
[2019-10-18] MEDS ORDERED: DEXTROSE 50% 25 GM/50 ML VIAL IV STA (19:46)
[2019-10-18] MEDS ORDERED: SODIUM CHLORIDE 0.9% 500 ML IV STA (20:01)
[2019-10-18] MEDS ORDERED: DEXTROSE 50% 25 GM/50 ML SYRINGE IV STA (20:01)
[2019-10-18 21:24] LABS: Albumin 2.8 G/DL (3.4-5.0); Bilirubin,Total 0.9 MG/DL (0.2-1.0); Calcium 8.3 MG/DL (8.5-10.1); Total Protein 6.1 G/DL (6.4-8.3)
[2019-10-18 21:26] LABS: INR 1.2; PT Patient Result 12.5 SECS (9.8-11.9)
[2019-10-18] MEDS ORDERED: POTASSIUM CHLORIDE 20 MEQ TABLET PO STA (21:28)
[2019-10-18] MEDS ORDERED: MAGNESIUM SULF RIDER 2 GM in PREMIX 1 EACH IV STA (21:28)
[2019-10-18 21:34] LABS: Basophils % 0.1 % (0.0-0.8); Hematocrit 38.3 VOL% (35.7-47.0); Hemoglobin 12.3 GM/DL (12.0-16.0); Immature Granulocytes % 1.1 %; Lymphocytes # 0.7 10*3/uL (1.4-4.0); Mean Corpuscular HGB Conc 32.1 GM/DL (32-36); Mean Corpuscular Volume 89.1 FL (87-102); Mean Platelet Volume 10.2 FL (9.6-12.0); Monocytes % 5.7 % (1.7-12.7); Neutrophils % 85.1 % (38.7-73.9); Platelet Count 251 T/CUMM (130-400); Red Cell Distribution Width 16.5 % (9.3-17.3); White Blood Count 8.9 T/CUMM (4-12)
[2019-10-18 21:55] LABS: Apearance,Urine Slightly Hazy (Clear); Bilirubin,Urine Negative (Negative); Blood, Urine Negative (Negative); Glucose,Urine (UA) 50 mg/dL (Negative); Hyaline Casts,Urine 25 /LPF (0-3); Ketones,Urine 5 mg/dL (Negative); Mucus,Urine Many /LPF (Occasional); Nitrite,Urine Negative (Negative); Protein,Urine 30 MG/DL; Squamous Epithelial Cell,Urine Occasional /HPF (0-10); Urine Color Amber (Yellow)
[2019-10-18] MEDS ORDERED: POTASSIUM CHLORIDE RIDER 100 ML IV ONE (21:56)
[2019-10-18] MEDS ORDERED: POTASSIUM CHLORIDE RIDER 10 MEQ in PREMIX 1 EACH IV ONE (22:07)
[2019-10-18] MEDS ORDERED: DEXTROSE 10% 250 ML IV ONE (22:35)
[2019-10-18] MEDS ORDERED: DEXTROSE 10% 1,000 ML IV SCH (23:00)
[2019-10-18] MEDS ORDERED: GLUCAGON 1 MG VIAL IM PRN ×2 (23:01)
[2019-10-18] MEDS ORDERED: ONDANSETRON 4 MG/2 ML VIAL IV PRN (23:01)
[2019-10-18] MEDS ORDERED: DEXTROSE 50% 25 GM/50 ML VIAL IV PRN (23:01)
[2019-10-18] MEDS ORDERED: ENOXAPARIN 40 MG/0.4 ML SYRINGE SUBCUT SCH (23:30)
[2019-10-18] MEDS ORDERED: cefTRIAXone 1,000 MG in SYRINGE 1 EACH IV SCH (23:30)
[2019-10-18] MEDS ORDERED: MAGNESIUM SULF RIDER 2 GM in PREMIX 1 EACH IV PRN (23:32)
[2019-10-18] MEDS ORDERED: MAGNESIUM SULF RIDER 4 GM in PREMIX 1 EACH IV PRN (23:32)
[2019-10-18] MEDS: DEXTROSE 50% 25 GM/50 ML VIAL IV PRN (23:36)
[2019-10-19] MEDS ORDERED: INSULIN REGULAR 100 UNIT/ML SUBCUT SCH (00:21)
[2019-10-19] MEDS ORDERED: GLUCAGON 1 MG VIAL IM PRN ×2 (00:21)
[2019-10-19] MEDS ORDERED: ONDANSETRON 4 MG/2 ML VIAL IV PRN (00:21)
[2019-10-19] MEDS ORDERED: DEXTROSE 50% 25 GM/50 ML VIAL IV PRN ×2 (00:21)
[2019-10-19] MEDS ORDERED: AZITHROMYCIN INJ 500 MG in SODIUM CHLORIDE 0.9% 250 ML IV SCH (01:00)
[2019-10-19] MEDS: DEXTROSE 50% 25 GM/50 ML VIAL IV PRN ×3 (02:14→07:59)
[2019-10-19] MEDS: INSULIN LISPRO 100 UNIT/ML SUBCUT SCH ×4 (02:32→11:09)
[2019-10-19] MEDS: INSULIN REGULAR 100 UNIT/ML SUBCUT SCH ×3 (02:32→11:09)
[2019-10-19] MEDS ORDERED: DEXTROSE 10% 500 ML IV SCH ×2 (02:41→03:00)
[2019-10-19 03:41] LABS: Basophils % 0.2 % (0.0-0.8); Eosinophils % 0.2 % (0.00-10.9); Hematocrit 35.4 VOL% (35.7-47.0); Hemoglobin 11.3 GM/DL (12.0-16.0); Immature Granulocytes % 1.4 %; Immature Granulocytes Absolute 0.12 #; Lymphocytes # 1.2 10*3/uL (1.4-4.0); Lymphocytes % 14.5 % (21.3-54.2); Mean Corpuscular HGB Conc 31.9 GM/DL (32-36); Mean Corpuscular Volume 90.5 FL (87-102); Mean Platelet Volume 10.1 FL (9.6-12.0); Monocytes % 8.7 % (1.7-12.7); Platelet Count 217 T/CUMM (130-400); Red Blood Count 3.91 MC/CUMM (3.8-5.5); Red Cell Distribution Width 16.4 % (9.3-17.3); White Blood Count 8.5 T/CUMM (4-12)
[2019-10-19 04:14] LABS: Albumin 2.5 G/DL (3.4-5.0); Bilirubin,Total 0.9 MG/DL (0.2-1.0); Calcium 7.7 MG/DL (8.5-10.1); Osmolality,Calculated 275.8 MOS/KG (273-304); Risk Ratio 1.92; Thyroid Stimulating Hormone 1.53 uIU/ml (0.358-3.74); Total Protein 5.3 G/DL (6.4-8.3); VLDL CHOLESTEROL 8.6 MG/DL
[2019-10-19] MEDS: POTASSIUM CHLORIDE 20 MEQ TABLET PO PRN ×2 (05:25→17:02)
[2019-10-19] MEDS: POTASSIUM CHLORIDE RIDER 10 MEQ in PREMIX 1 EACH IV PRN ×5 (05:58→10:35)
[2019-10-19] MEDS: DEXTROSE 10% 500 ML IV SCH ×3 (07:02→13:09)
[2019-10-19] MEDS ORDERED: PANTOPRAZOLE 40 MG TABLET PO SCH (09:00)
[2019-10-19] MEDS: PANTOPRAZOLE 40 MG VIAL IV SCH (09:07)
[2019-10-19 15:06] LABS: Calcium 7.8 MG/DL (8.5-10.1); Osmolality,Calculated 268.2 MOS/KG (273-304)
[2019-10-19] MEDS ORDERED: NITROGLYCERIN SL 0.4 MG TABLET SL PRN (15:29)
[2019-10-19] MEDS ORDERED: POTASSIUM CHLORIDE 20 MEQ TABLET PO ONE (16:59)
[2019-10-19] MEDS: POTASSIUM CHLORIDE INJ 10 MEQ in DEXTROSE 5% LACTATED RINGERS 1,000 ML IV SCH (17:01)
[2019-10-19 18:08] LABS: Osmolality,Calculated 265.4 MOS/KG (273-304)
[2019-10-19] MEDS: DILTIAZEM 60 MG TABLET PO SCH (18:24)
[2019-10-19] MEDS: METOPROLOL TARTRATE 25 MG TABLET PO SCH (21:45)
[2019-10-19] MEDS: CARBIDOPA/LEVODOPA 10-100 MG TABLET PO SCH (21:46)
[2019-10-19] MEDS: ATORVASTATIN 20 MG TABLET PO SCH (21:46)
[2019-10-19] MEDS: APIXABAN 5 MG TABLET PO SCH (21:46)
[2019-10-19] MEDS: AMIODARONE 200 MG TABLET PO SCH (21:46)
[2019-10-19] MEDS: ACETAMINOPHEN 325 MG TABLET PO PRN (23:11)
[2019-10-19 23:31] LABS: Calcium 8.1 MG/DL (8.5-10.1); Osmolality,Calculated 270.1 MOS/KG (273-304)
[2019-10-20] MEDS: ZIPRASIDONE 20 MG/1 ML VIAL IM PRN ×4 (00:27→23:47)
[2019-10-20] MEDS: DILTIAZEM 60 MG TABLET PO SCH ×4 (00:34→17:35)
[2019-10-20 04:44] LABS: Basophils % 0.3 % (0.0-0.8); Eosinophils # 0.1 10*3/uL (0.0-0.87); Eosinophils % 1.3 % (0.00-10.9); Hematocrit 35.8 VOL% (35.7-47.0); Hemoglobin 11.4 GM/DL (12.0-16.0); Immature Granulocytes % 1.1 %; Lymphocytes # 1.5 10*3/uL (1.4-4.0); Mean Corpuscular HGB Conc 31.8 GM/DL (32-36); Mean Corpuscular Volume 89.7 FL (87-102); Mean Platelet Volume 10.3 FL (9.6-12.0); Monocytes % 10.5 % (1.7-12.7); Neutrophils % 69.8 % (38.7-73.9); Platelet Count 215 T/CUMM (130-400); Red Blood Count 3.99 MC/CUMM (3.8-5.5); Red Cell Distribution Width 16.4 % (9.3-17.3)
[2019-10-20 05:05] LABS: Calcium 8.3 MG/DL (8.5-10.1)
[2019-10-20] MEDS: POTASSIUM CHLORIDE 20 MEQ TABLET PO PRN (05:53)
[2019-10-20] MEDS: POTASSIUM CHLORIDE INJ 10 MEQ in DEXTROSE 5% LACTATED RINGERS 1,000 ML IV SCH (06:02)
[2019-10-20] MEDS ORDERED: POTASSIUM CHLORIDE 20 MEQ TABLET PO ONE (07:18)
[2019-10-20] MEDS: ASCORBIC ACID 500 MG TABLET PO SCH (08:20)
[2019-10-20] MEDS: METOPROLOL TARTRATE 25 MG TABLET PO SCH ×2 (08:20→21:57)
[2019-10-20] MEDS: CARBIDOPA/LEVODOPA 10-100 MG TABLET PO SCH ×3 (08:20→21:57)
[2019-10-20] MEDS: AMIODARONE 200 MG TABLET PO SCH ×2 (08:20→21:45)
[2019-10-20] MEDS: PANTOPRAZOLE 40 MG VIAL IV SCH (08:20)
[2019-10-20] MEDS: QUEtiapine 25 MG TABLET PO SCH (08:20)
[2019-10-20] MEDS: APIXABAN 5 MG TABLET PO SCH ×2 (08:20→21:57)
[2019-10-20] MEDS: ASPIRIN CHEW 81 MG TABLET PO SCH (08:20)
[2019-10-20] MEDS: ATORVASTATIN 20 MG TABLET PO SCH (21:45)
[2019-10-21] MEDS: DILTIAZEM 60 MG TABLET PO SCH ×6 (00:18→23:40)
[2019-10-21 05:54] LABS: Basophils % 0.4 % (0.0-0.8); Eosinophils % 0.3 % (0.00-10.9); Hematocrit 35.5 VOL% (35.7-47.0); Hemoglobin 11.1 GM/DL (12.0-16.0); Immature Granulocytes % 1.4 %; Immature Granulocytes Absolute 0.11 #; Lymphocytes # 1.3 10*3/uL (1.4-4.0); Lymphocytes % 17.2 % (21.3-54.2); Mean Corpuscular HGB Conc 31.3 GM/DL (32-36); Mean Corpuscular Volume 92.2 FL (87-102); Monocytes % 12.2 % (1.7-12.7); Neutrophils % 68.5 % (38.7-73.9); Platelet Count 193 T/CUMM (130-400); Red Blood Count 3.85 MC/CUMM (3.8-5.5); Red Cell Distribution Width 16.8 % (9.3-17.3); White Blood Count 7.6 T/CUMM (4-12)
[2019-10-21 06:24] LABS: Calcium 8.6 MG/DL (8.5-10.1); Osmolality,Calculated 282.4 MOS/KG (273-304)
[2019-10-21] MEDS: POTASSIUM CHLORIDE INJ 10 MEQ in DEXTROSE 5% LACTATED RINGERS 1,000 ML IV SCH (09:00)
[2019-10-21] MEDS: METOPROLOL TARTRATE 25 MG TABLET PO SCH ×2 (09:44→21:49)
[2019-10-21] MEDS: QUEtiapine 25 MG TABLET PO SCH (09:44)
[2019-10-21] MEDS: ASCORBIC ACID 500 MG TABLET PO SCH (09:44)
[2019-10-21] MEDS: AMIODARONE 200 MG TABLET PO SCH ×2 (09:45→21:49)
[2019-10-21] MEDS: APIXABAN 5 MG TABLET PO SCH ×2 (09:45→21:49)
[2019-10-21] MEDS: ASPIRIN CHEW 81 MG TABLET PO SCH (09:45)
[2019-10-21] MEDS: PANTOPRAZOLE 40 MG VIAL IV SCH (09:45)
[2019-10-21] MEDS: CARBIDOPA/LEVODOPA 10-100 MG TABLET PO SCH ×3 (09:45→21:49)
[2019-10-21] MEDS: INSULIN LISPRO 100 UNIT/ML SUBCUT SCH ×2 (16:04→21:49)
[2019-10-21] MEDS: ATORVASTATIN 20 MG TABLET PO SCH (21:50)
[2019-10-21] MEDS: ACETAMINOPHEN 325 MG TABLET PO PRN (23:46)
[2019-10-22] MEDS: DILTIAZEM 60 MG TABLET PO SCH ×3 (07:02→17:22)
[2019-10-22] MEDS: INSULIN LISPRO 100 UNIT/ML SUBCUT SCH ×4 (07:36→21:44)
[2019-10-22 08:23] LABS: Basophils % 0.4 % (0.0-0.8); Eosinophils # 0.1 10*3/uL (0.0-0.87); Eosinophils % 2.1 % (0.00-10.9); Hematocrit 34.1 VOL% (35.7-47.0); Hemoglobin 10.6 GM/DL (12.0-16.0); Immature Granulocytes % 1.4 %; Immature Granulocytes Absolute 0.07 #; Lymphocytes # 1.1 10*3/uL (1.4-4.0); Lymphocytes % 23.3 % (21.3-54.2); Mean Corpuscular HGB Conc 31.1 GM/DL (32-36); Mean Corpuscular Volume 92.2 FL (87-102); Mean Platelet Volume 9.9 FL (9.6-12.0); Monocytes % 11.3 % (1.7-12.7); Neutrophils % 61.5 % (38.7-73.9); Platelet Count 184 T/CUMM (130-400); Red Cell Distribution Width 16.6 % (9.3-17.3); White Blood Count 4.9 T/CUMM (4-12)
[2019-10-22 08:35] LABS: Calcium 8.4 MG/DL (8.5-10.1); Osmolality,Calculated 282.4 MOS/KG (273-304)
[2019-10-22] MEDS: APIXABAN 5 MG TABLET PO SCH ×2 (09:33→21:44)
[2019-10-22] MEDS: AMIODARONE 200 MG TABLET PO SCH ×2 (09:33→21:43)
[2019-10-22] MEDS: ASCORBIC ACID 500 MG TABLET PO SCH (09:34)
[2019-10-22] MEDS: QUEtiapine 25 MG TABLET PO SCH (09:34)
[2019-10-22] MEDS: ASPIRIN CHEW 81 MG TABLET PO SCH (09:34)
[2019-10-22] MEDS: METOPROLOL TARTRATE 25 MG TABLET PO SCH ×2 (09:34→21:43)
[2019-10-22] MEDS: CARBIDOPA/LEVODOPA 10-100 MG TABLET PO SCH ×3 (09:35→21:44)
[2019-10-22] MEDS: PANTOPRAZOLE 40 MG VIAL IV SCH (09:35)
[2019-10-22] MEDS: ZIPRASIDONE 20 MG/1 ML VIAL IM PRN ×2 (14:35→23:01)
[2019-10-22 21:10] LABS: ABG Base Excess 10.7 MMOL/L (-2.5-2.5); ABG HCO3 34.3 MMOL/L (20-26); ABG Oxygen Saturation 90.6 % (95-100); ABG PCO2 64.8 MM HG (35-48); ABG PH 7.382 (7.35-7.45); ABG PO2 59.8 MM HG (80-95); ABG TCO2 34.5 MMOL/L (23-27); Allen Test Positive
[2019-10-22] MEDS: ATORVASTATIN 20 MG TABLET PO SCH (21:44)
[2019-10-23] MEDS: DILTIAZEM 60 MG TABLET PO SCH ×4 (01:15→17:02)
[2019-10-23 05:53] LABS: Basophils % 0.4 % (0.0-0.8); Eosinophils % 0.6 % (0.00-10.9); Hematocrit 35.9 VOL% (35.7-47.0); Hemoglobin 11.4 GM/DL (12.0-16.0); Immature Granulocytes % 1.1 %; Immature Granulocytes Absolute 0.08 #; Lymphocytes # 1.5 10*3/uL (1.4-4.0); Lymphocytes % 20.6 % (21.3-54.2); Mean Corpuscular HGB Conc 31.8 GM/DL (32-36); Mean Corpuscular Volume 90.7 FL (87-102); Mean Platelet Volume 9.7 FL (9.6-12.0); Monocytes % 10.6 % (1.7-12.7); Neutrophils % 66.7 % (38.7-73.9); Platelet Count 206 T/CUMM (130-400); Red Blood Count 3.96 MC/CUMM (3.8-5.5); Red Cell Distribution Width 16.4 % (9.3-17.3); White Blood Count 7.3 T/CUMM (4-12)
[2019-10-23 06:38] LABS: Albumin 2.5 G/DL (3.4-5.0); Calcium 8.5 MG/DL (8.5-10.1); Osmolality,Calculated 276.7 MOS/KG (273-304)
[2019-10-23 08:05] LABS: ABG Base Excess 12.2 MMOL/L (-2.5-2.5); ABG HCO3 35.8 MMOL/L (20-26); ABG Oxygen Saturation 93.2 % (95-100); ABG PH 7.411 (7.35-7.45); ABG PO2 68.5 MM HG (80-95); ABG TCO2 35.5 MMOL/L (23-27); Allen Test Positive; Pt O2 Delivery Device BIPAP
[2019-10-23] MEDS: INSULIN LISPRO 100 UNIT/ML SUBCUT SCH ×4 (08:38→22:26)
[2019-10-23] MEDS: AMIODARONE 200 MG TABLET PO SCH ×2 (10:04→22:26)
[2019-10-23] MEDS: ASCORBIC ACID 500 MG TABLET PO SCH (10:04)
[2019-10-23] MEDS: QUEtiapine 25 MG TABLET PO SCH (10:05)
[2019-10-23] MEDS: APIXABAN 5 MG TABLET PO SCH ×2 (10:05→22:56)
[2019-10-23] MEDS: ASPIRIN CHEW 81 MG TABLET PO SCH (10:05)
[2019-10-23] MEDS: METOPROLOL TARTRATE 25 MG TABLET PO SCH ×2 (10:05→22:27)
[2019-10-23] MEDS: CARBIDOPA/LEVODOPA 10-100 MG TABLET PO SCH ×3 (10:05→22:27)
[2019-10-23] MEDS: PANTOPRAZOLE 40 MG VIAL IV SCH (10:05)
[2019-10-23] MEDS: ZIPRASIDONE 20 MG/1 ML VIAL IM PRN ×2 (14:59→21:10)
[2019-10-23 20:14] LABS: ABG Base Excess 11.4 MMOL/L (-2.5-2.5); ABG HCO3 35.1 MMOL/L (20-26); ABG Oxygen Saturation 98.7 % (95-100); ABG PCO2 66.7 MM HG (35-48); ABG PH 7.377 (7.35-7.45); ABG TCO2 35.5 MMOL/L (23-27)
[2019-10-23] MEDS: ATORVASTATIN 20 MG TABLET PO SCH (22:27)
[2019-10-24] MEDS: DILTIAZEM 60 MG TABLET PO SCH ×4 (01:00→18:14)
[2019-10-24 06:11] LABS: Basophils % 0.6 % (0.0-0.8); Eosinophils # 0.1 10*3/uL (0.0-0.87); Eosinophils % 1.3 % (0.00-10.9); Hematocrit 35.3 VOL% (35.7-47.0); Hemoglobin 10.9 GM/DL (12.0-16.0); Immature Granulocytes % 1.1 %; Immature Granulocytes Absolute 0.06 #; Lymphocytes # 1.4 10*3/uL (1.4-4.0); Lymphocytes % 26.1 % (21.3-54.2); Mean Corpuscular HGB Conc 30.9 GM/DL (32-36); Mean Corpuscular Volume 93.1 FL (87-102); Mean Platelet Volume 9.5 FL (9.6-12.0); Monocytes % 11.4 % (1.7-12.7); Neutrophils % 59.5 % (38.7-73.9); Platelet Count 203 T/CUMM (130-400); Red Blood Count 3.79 MC/CUMM (3.8-5.5); Red Cell Distribution Width 16.6 % (9.3-17.3); White Blood Count 5.4 T/CUMM (4-12)
[2019-10-24 07:03] LABS: Albumin 2.4 G/DL (3.4-5.0); Bilirubin,Total 1.2 MG/DL (0.2-1.0); Calcium 8.3 MG/DL (8.5-10.1); Osmolality,Calculated 283.1 MOS/KG (273-304); Total Protein 5.6 G/DL (6.4-8.3)
[2019-10-24] MEDS ORDERED: ALBUTEROL 0.63 MG/3 ML NEB RESP TX PRN (08:24)
[2019-10-24] MEDS: APIXABAN 5 MG TABLET PO SCH ×2 (09:06→20:51)
[2019-10-24] MEDS: ASCORBIC ACID 500 MG TABLET PO SCH (09:06)
[2019-10-24] MEDS: AMIODARONE 200 MG TABLET PO SCH ×2 (09:07→20:50)
[2019-10-24] MEDS: ASPIRIN CHEW 81 MG TABLET PO SCH (09:07)
[2019-10-24] MEDS: QUEtiapine 25 MG TABLET PO SCH (09:07)
[2019-10-24] MEDS: predniSONE 20 MG TABLET PO SCH (09:07)
[2019-10-24] MEDS: PANTOPRAZOLE 40 MG VIAL IV SCH (09:08)
[2019-10-24] MEDS: CARBIDOPA/LEVODOPA 10-100 MG TABLET PO SCH ×3 (09:08→20:50)
[2019-10-24] MEDS: METOPROLOL TARTRATE 25 MG TABLET PO SCH ×2 (09:09→20:50)
[2019-10-24] MEDS: INSULIN LISPRO 100 UNIT/ML SUBCUT SCH ×4 (10:19→20:50)
[2019-10-24] MEDS ORDERED: LORazepam 2 MG/1 ML VIAL IV ONE (17:58)
[2019-10-24] MEDS: ATORVASTATIN 20 MG TABLET PO SCH (20:51)
[2019-10-24] MEDS: ZIPRASIDONE 20 MG/1 ML VIAL IM PRN (21:14)
[2019-10-25] MEDS: DILTIAZEM 60 MG TABLET PO SCH ×3 (00:15→12:54)
[2019-10-25] MEDS: ACETAMINOPHEN 325 MG TABLET PO PRN ×2 (00:16→12:53)
[2019-10-25 06:20] LABS: Basophils % 0.2 % (0.0-0.8); Hematocrit 35.6 VOL% (35.7-47.0); Hemoglobin 11.2 GM/DL (12.0-16.0); Immature Granulocytes % 0.9 %; Immature Granulocytes Absolute 0.06 #; Lymphocytes # 1.4 10*3/uL (1.4-4.0); Lymphocytes % 21.8 % (21.3-54.2); Mean Corpuscular HGB Conc 31.5 GM/DL (32-36); Mean Corpuscular Volume 90.8 FL (87-102); Mean Platelet Volume 9.8 FL (9.6-12.0); Monocytes % 10.9 % (1.7-12.7); Neutrophils % 66.2 % (38.7-73.9); Platelet Count 230 T/CUMM (130-400); Red Blood Count 3.92 MC/CUMM (3.8-5.5); Red Cell Distribution Width 16.4 % (9.3-17.3); White Blood Count 6.4 T/CUMM (4-12)
[2019-10-25 06:52] LABS: Albumin 2.7 G/DL (3.4-5.0); Bilirubin,Total 0.9 MG/DL (0.2-1.0); Calcium 8.8 MG/DL (8.5-10.1); Osmolality,Calculated 285.3 MOS/KG (273-304); Total Protein 6.1 G/DL (6.4-8.3)
[2019-10-25] MEDS: INSULIN LISPRO 100 UNIT/ML SUBCUT SCH ×2 (08:28→12:52)
[2019-10-25] MEDS: AMIODARONE 200 MG TABLET PO SCH (08:58)
[2019-10-25] MEDS: METOPROLOL TARTRATE 25 MG TABLET PO SCH (08:58)
[2019-10-25] MEDS: QUEtiapine 25 MG TABLET PO SCH (08:58)
[2019-10-25] MEDS: predniSONE 20 MG TABLET PO SCH (08:58)
[2019-10-25] MEDS: POTASSIUM CHLORIDE 20 MEQ TABLET PO PRN ×2 (08:58→11:05)
[2019-10-25] MEDS: ASCORBIC ACID 500 MG TABLET PO SCH (08:58)
[2019-10-25] MEDS: PANTOPRAZOLE 40 MG VIAL IV SCH (08:58)
[2019-10-25] MEDS: APIXABAN 5 MG TABLET PO SCH (08:58)
[2019-10-25] MEDS: ASPIRIN CHEW 81 MG TABLET PO SCH (08:58)
[2019-10-25] MEDS: CARBIDOPA/LEVODOPA 10-100 MG TABLET PO SCH (08:58)
[2019-10-25 12:43] VITALS: BP 117/55
== END 2019-10-25 14:15 | DRG 637 ==
LOC: EDBD → EDUNIT# → N.ED 19:14 → INTOOBSV 22:44 → OBSVTOIN 22:44 → N.EDINP 22:44 → SUATTDRO 22:44 → N.ICU 10-19 00:17 → N.TELEN 10-20 15:49
PROVIDERS: ADMIT Phlebology; ATTEND Internal Medicine Geriatric Medicine